=== PATIENT | male | born 1965 | race African-American/Black ===

== ENCOUNTER 2018-01-09 16:55 | Inpatient (IN) ==
--- NOTE | 2018-01-09 17:31 | ED ---
HPI General Chief complaint: Respiratory Symptoms Stated complaint: FLU LIKE SYMPTOMS Source: patient Mode of arrival: ambulatory Limitations: no limitations History of Present Illness HPI narrative: 52-year-old male patient with history of hypertension presents to the ER today with 2 days history of malaise, cough, flulike symptoms, shortness of breath, and body aches. He does not know of any sick contacts. He denies any chest pains, vomiting, abdominal pains, or other symptoms. Related Data Home Medications Medication Instructions Recorded Confirmed No Known Home Medications 01/09/18 01/09/18 Allergies Allergy/AdvReac Type Severity Reaction Status Date / Time No Known Allergies Allergy Unknown none Uncoded 01/09/18 17:04 Review of Systems ROS: all other systems reviewed are negative [facility] Social History Social History Substance History: Past History Second Hand Smoke Exposure: No Smoking Status: Former smoker Tobacco Type: Cigarettes How Often Do You Have a Drink Containing Alcohol: Monthly or less Recent Travel in [facility] within the Last 8 Weeks: No Recent Out of Country Travel within the Last 8 Weeks: No Exam Narrative Exam Narrative: GENERAL: Well-developed middle-age male patient currently and moderate distress. Awake and oriented 3. SKIN: Focused skin assessment warm/dry. HEAD: Atraumatic. Normocephalic. EYES: Pupils equal and round. No scleral icterus. No injection or drainage. ENT: No nasal bleeding or discharge. Mucous membranes pink and moist. NECK: Trachea midline. No JVD. CARDIOVASCULAR: Regular rate and rhythm. No murmur appreciated. RESPIRATORY: No accessory muscle use. Coarse breath sounds bilaterally. Breath sounds equal bilaterally. GASTROINTESTINAL: Abdomen soft, non-tender, nondistended. Hepatic and splenic margins not palpable. MUSCULOSKELETAL: No obvious deformities. No clubbing. No cyanosis. No edema. NEUROLOGICAL: Awake and alert. No obvious cranial nerve deficits. Motor grossly within normal limits. Normal speech. PSYCHIATRIC: Appropriate mood and affect; insight and judgment normal. Course Initial Documented Vital Signs Temperature 98.9 F 01/09/18 16:56 Pulse Rate 95 H 01/09/18 16:56 Respiratory Rate 24 01/09/18 16:56 Blood Pressure 111/63 01/09/18 16:56 Pulse Oximetry 93 L 01/09/18 16:56 Last Documented Vital Signs Temperature 98.9 F 01/09/18 16:56 Pulse Rate 92 H 01/09/18 18:18 Respiratory Rate 22 01/09/18 18:18 Blood Pressure 99/56 L 01/09/18 18:18 Pulse Oximetry 94 L 01/09/18 18:18 Medical Decision Making MDM Narrative Medical decision making narrative: Chest x-ray shows a right upper lobe pneumonia. IV fluids were given and antibiotics were given after cultures have been drawn. His lactate is fairly elevated as well. At this point, my plan would be to admit him for further treatment of his pneumonia. Case is discussed with hospitalist Dr. Juarez is for admission. Medical Screen Exam Complete: Yes Emergency Medical Condition: Yes Differential Diagnosis Differential Diagnosis: Sepsis versus pneumonia versus bronchitis versus influenza Lab Data Lab results reviewed: Yes I reviewed the patient's lab results. Result diagrams: 01/09/18 17:20 01/09/18 17:20 Lab Results 01/09/18 01/09/18 01/09/18 Range/Units 17:20 17:20 17:20 CBC w Diff Slide review pending WBC 3.1 L (4.0-11.0) th/mm3 RBC 5.04 (4.50-5.90) mil/mm3 Hgb 15.7 (13.0-17.0) gm/dL Hct 45.4 (39.0-51.0) % MCV 90.2 (80.0-100.0) fL MCH 31.1 (27.0-34.0) pg MCHC 34.5 (32.0-36.0) % RDW 13.5 (11.6-17.2) % Plt Count 183 (150-450) th/mm3 MPV 9.0 (7.0-11.0) fL Neut % (Auto) 76.8 H (16.0-70.0) % Lymph % (Auto) 15.6 (9.0-44.0) % [place] % (Auto) 7.1 (0.0-8.0) % Eos % (Auto) 0.3 (0.0-4.0) % Baso % (Auto) 0.2 (0.0-2.0) % Neut # (Auto) 2.4 (1.8-7.7) th/mm3 Lymph # (Auto) 0.5 L (1.0-4.8) th/mm3 [place] # (Auto) 0.2 (0.0-0.9) th/mm3 Eos # (Auto) 0.0 (0.0-0.4) th/mm3 Baso # (Auto) 0.0 (0.0-0.2) th/mm3 WBC Differential . Diff Scan Auto diff confirmed Differential Comment . Sodium 138 (136-145) meq/L Potassium 4.5 (3.5-5.1) meq/L Chloride 103 (98-107) meq/L Carbon Dioxide 25.1 (21.0-32.0) meq/L Anion Gap 10 (5-15) meq/L BUN 21 H (7-18) mg/dL Creatinine 1.80 H (0.60-1.30) mg/dL Estimated GFR 48 L (>89) mL/min Random Glucose 119 H (74-106) mg/dL Lactic Acid 3.2 H (0.4-2.0) mmol/L Calcium 8.5 (8.5-10.1) mg/dL Total Bilirubin 1.1 H (0.2-1.0) mg/dL AST 40 H (15-37) U/L ALT 41 (12-78) U/L Alkaline Phosphatase 35 L (45-117) U/L Total Protein 7.2 (6.4-8.2) g/dL Albumin 3.1 L (3.4-5.0) g/dL Imaging Data Attestation: I personally reviewed and interpreted this imaging study as follows : Radiologist's impression: Chest X-Ray 01/09/18 17:24 CONCLUSION: Right upper lobe pneumonia. Discharge Plan Discharge Disposition Patient Disposition: 30 Still Patient Discharge Condition Condition: Stable Discharge Details Anticipated Discharge Date: 01/09/18 Diagnosis: Pneumonia, Sepsis Physicians Team ED Provider: Diana Madrigal Primary Care Provider: Primary Care Flores Gross Rxs /Orders / Referrals /Forms Prescriptions: No Action No Known Home Medications RF: 0 Status ED Status: In Room
[2018-01-09 17:44] LABS: Baso % (Auto) 0.2 % (0.0-2.0); Eos % (Auto) 0.3 % (0.0-4.0); Hematocrit 45.4 % (39.0-51.0); Hemoglobin 15.7 gm/dL (13.0-17.0); Lymph # (Auto) 0.5 th/mm3 (1.0-4.8); Lymph % (Auto) 15.6 % (9.0-44.0); Mean Corpuscular HGB Conc 34.5 % (32.0-36.0); Mean Corpuscular Hemoglobin 31.1 pg (27.0-34.0); Mean Corpuscular Volume 90.2 fL (80.0-100.0); Mono # (Auto) 0.2 th/mm3 (0.0-0.9); Mono % (Auto) 7.1 % (0.0-8.0); Neut # (Auto) 2.4 th/mm3 (1.8-7.7); Neut % (Auto) 76.8 % (16.0-70.0); Platelet Count 183 th/mm3 (150-450); Red Blood Count 5.04 mil/mm3 (4.50-5.90); Red Cell Distribution Width 13.5 % (11.6-17.2); White Blood Count 3.1 th/mm3 (4.0-11.0)
[2018-01-09 17:46] LABS: Chloride 103 meq/L (98-107); Potassium 4.5 meq/L (3.5-5.1); Sodium 138 meq/L (136-145)
[2018-01-09 17:49] LABS: Albumin 3.1 g/dL (3.4-5.0); Anion Gap 10 meq/L (5-15); Calcium 8.5 mg/dL (8.5-10.1); Carbon Dioxide 25.1 meq/L (21.0-32.0); Glucose,Random 119 mg/dL (74-106)
--- NOTE | 2018-01-09 17:49 | XR ---
EXAM DATE: 01/09/2018 5:44 PM EDT AGE/SEX: 52 years / Male INDICATIONS: Short of breath, right side chest pain, cough, fever CLINICAL DATA: This is the patient's initial encounter. Patient reports that signs and symptoms have been present for 2 days and indicates a pain score of 6/10. MEDICAL/SURGICAL HISTORY: None. None. COMPARISON: No prior exams available for comparison. FINDINGS: There is dense airspace consolidation right upper lobe consistent with pneumonia. Heart and mediastinum are unremarkable for technique. CONCLUSION: Right upper lobe pneumonia. Electronically signed by: Kady Ryan MD 01/09/2018 5:48 PM EDT
[2018-01-09 17:50] LABS: Blood Urea Nitrogen 21 mg/dL (7-18)
[2018-01-09 17:52] LABS: Alanine Aminotransferase 41 U/L (12-78)
[2018-01-09 17:53] LABS: Aspartate Aminotransferase 40 U/L (15-37); Glomerular Filtration Rate 48 mL/min (>89)
[2018-01-09 17:54] LABS: Total Protein 7.2 g/dL (6.4-8.2)
[2018-01-09 17:55] LABS: Alkaline Phosphatase 35 U/L (45-117)
[2018-01-09] MEDS ORDERED: Sodium Chlor 0.9% Inj 500 ML IV.SIG SCH (18:00)
[2018-01-09] MEDS ORDERED: Azithromycin Inj 500 MG in Sodium Chlor 0.9% Inj 250 ML IV.SIG ONE (18:03)
[2018-01-09 21:48] LABS: Bilirubin,Urine Negative (Negative); Clarity,Urine Clear (Clear); Glucose,Urine (UA) Negative (Negative); Leukocyte Esterase,Urine Negative (Negative); Nitrite,Urine Negative (Negative); Specific Gravity,Urine 1.025 (1.002-1.035)
[2018-01-09 22:16] LABS: Color,Urine Orange (Yellw/Straw)
[2018-01-09 22:17] LABS: RBC,Urine 0-3 /hpf (0-3)
--- NOTE | 2018-01-09 23:46 | P.HPCC ---
History of Present Illness Primary Care Physician: No Primary Care Physician History of Present Illness: 52-year-old male patient with history of hypertension presents with 2 days history of malaise, cough, flulike symptoms, shortness of breath, and body aches. He does not know of any sick contacts. He denies any chest pains, vomiting, abdominal pains, or other symptoms. After patient was admitted to hospitalist services, however his blood pressures dropped to 70/50, and there was a concern that he may be septic. Also the lactate was 3. The hospitalists then requested to admit the patient to ironmolder service. Inpatient Certification: I certify that the inpatient services were ordered in accordance with Medicare regulations governing the order. This includes certification that hospital inpatient services are reasonable and necessary and in the case of services not specified as inpatient-only under 42 CFR 419.22(n), that they are appropriately provided as inpatient services in accordance to with the 2-midnight benchmark under 43 CFR 412.3(e) Estimated Total Length of Stay (Days): 2 Plans for Post Hospital Care: Home Review of Systems All other systems reviewed negative except as stated in HPI PMFSH - History History Provided By: Patient - Tobacco History Second Hand Smoke Exposure: No Tobacco Use In Past 30 Days: No Smoking Status: Former smoker Tobacco Type: Cigarettes - Alcohol History How Often Do You Have a Drink Containing Alcohol: Monthly or less - Substance Use History Substance History: Past History - Substance Use Type Crack/Cocaine Status: Sustained Remission Route Used: Inhalation - Travel History Recent Travel in the [place] Within the Last 8 Weeks: No Recent Travel Out of the Country Within the Last 8 Weeks: No - Immunization History Tetanus Immunization: >5 Years Hx Influenza Vaccine This Season: No Medications and Allergies Active Medications: Active Medications Sodium Chloride (Ns Inj) 500 mls @ 0 mls/hr IV.SIG BOLUS RAVI Last Infusion: 01/09/18 19:29 Dose: Infused Sodium Chloride (Ns Flush) 2 ml IV.FLUSH PRN PRN PRN Reason: FLUSH AFTER USING IV ACCESS Last Admin: 01/09/18 20:00 Dose: 2 ml Current Medications Acetaminophen (Tylenol) 650 mg PO Q6H PRN PRN Reason: PAIN 1-10 AND/OR FEVER >101F Last Admin: 01/10/18 03:19 Dose: 650 mg Al Hydroxide/Mg Hydroxide (Milk Of Magnesia Liq) 30 ml PO Q12H PRN PRN Reason: Mild Constipation Albuterol (Duoneb Neb (Prn)) 1 ampul NEB Q2HR NEB PRN PRN Reason: WHEEZING Bisacodyl (Dulcolax Supp) 10 mg RECTAL DAILY PRN PRN Reason: SEVERE CONSITIPATION Chlorhexidine Gluconate (Chlorhexidine 2% Cloth) 3 pack TOPICAL DAILY@0400 RAVI Stop: 01/15/18 03:59 Last Admin: 01/10/18 03:05 Dose: 3 pack Chlorhexidine Gluconate (Chlorhexidine 2% Cloth) 3 pack TOPICAL DAILY@0400 PRN PRN Reason: Extra cloth needed Stop: 01/15/18 03:59 Enoxaparin Sodium (Lovenox Inj) 40 mg SQ Q24H [facility] Last Admin: 01/10/18 03:05 Dose: 40 mg Famotidine (Pepcid Pf Inj) 20 mg IV.PUSH Q12HR RAVI Sodium Chloride (Ns Inj) 500 mls @ 0 mls/hr IV.SIG BOLUS [facility] Last Infusion: 01/09/18 19:29 Dose: Infused Azithromycin 500 mg/ Sodium (Chloride) 250 mls @ 250 mls/hr IV.SIG Q24H [facility] Last Admin: 01/10/18 03:04 Dose: 250 mls/hr Sodium Chloride (Ns Inj) 1,000 mls @ 184 mls/hr IV.CONT .Q5H27M [facility] Last Admin: 01/10/18 03:05 Dose: 184 mls/hr Piperacillin/Tazobactam/Dextrose (Zosyn 4.5 Gm Premix) 4.5 gm in 100 mls @ 200 mls/hr IV.SIG Q6H [facility] Last Admin: 01/10/18 03:04 Dose: 200 mls/hr Lactulose (Lactulose Liq) 30 ml PO DAILY PRN PRN Reason: SEVERE CONSITIPATION Metoclopramide HCl (Reglan Inj) 5 mg IV.PUSH Q6HR RAVI; Protocol Ondansetron HCl (Zofran Inj) 4 mg IV.PUSH Q6H PRN PRN Reason: NAUSEA OR VOMITING Senna/Docusate Sodium (Winsome-Colace) 1 tab PO BID RAVI Sennosides (Senokot) 17.2 mg PO Q12H PRN PRN Reason: Moderate Constipation Sodium Chloride (Ns Flush) 2 ml IV.FLUSH PRN PRN PRN Reason: FLUSH AFTER USING IV ACCESS Last Admin: 01/09/18 20:00 Dose: 2 ml Sodium Chloride (Ns Flush) 2 ml IV.FLUSH PRN PRN PRN Reason: FLUSH AFTER USING IV ACCESS Sodium Chloride (Ns Flush) 2 ml IV.FLUSH BID RAVI Temazepam (Restoril) 15 mg PO HS PRN PRN Reason: INSOMNIA Allergies Allergy/AdvReac Type Severity Reaction Status Date / Time No Known Allergies Allergy Unknown none Uncoded 01/09/18 17:04 Home Medications Medication Instructions Recorded Confirmed Type No Known Home Medications 01/09/18 01/09/18 History Results - Labs CBC & Chem 7: 01/10/18 03:16 01/09/18 17:20 Labs: Short CBC 01/09/18 Range/Units 17:20 WBC 3.1 L (4.0-11.0) th/mm3 Hgb 15.7 (13.0-17.0) gm/dL Hct 45.4 (39.0-51.0) % Plt Count 183 (150-450) th/mm3 BMP 01/09/18 17:20 Sodium 138 Potassium 4.5 Chloride 103 Carbon Dioxide 25.1 BUN 21 H Creatinine 1.80 H Calcium 8.5 Liver Function 01/09/18 Range/Units 17:20 Total Bilirubin 1.1 H (0.2-1.0) mg/dL AST 40 H (15-37) U/L ALT 41 (12-78) U/L Alkaline Phosphatase 35 L (45-117) U/L Albumin 3.1 L (3.4-5.0) g/dL Urine 01/09/18 Range/Units 21:40 Urine Color [place]zel H (Yellw/Straw) Urine Clarity Clear (Clear) Urine pH 6.0 (5.0-8.5) Ur Specific [place] 1.025 (1.002-1.035) Urine Protein 30 H (Neg-Trace) mg/dL Urine Glucose (UA) Negative (Negative) mg/dL - Imaging Impressions Chest X-Ray 01/09/18 17:24 CONCLUSION: Right upper lobe pneumonia. Exam Vital signs: Vital Signs 01/09/18 16:56 01/09/18 17:20 01/09/18 18:18 Temperature 98.9 F Pulse Rate 95 H 92 H Respiratory Rate 24 22 Blood Pressure 111/63 99/56 L Pulse Oximetry 93 L 90 L 94 L 01/09/18 18:40 01/09/18 18:46 01/09/18 19:00 Temperature Pulse Rate 91 H 91 H 91 H Respiratory Rate 22 22 23 Blood Pressure 74/56 L 93/55 L 90/58 L Pulse Oximetry 98 98 01/09/18 19:30 01/09/18 19:55 01/09/18 21:22 Temperature Pulse Rate 98 H 96 H 90 Respiratory Rate 23 26 H 26 H Blood Pressure 98/68 L 102/58 L 107/44 L Pulse Oximetry 98 93 L 95 Intake & Output 01/09/18 01/09/18 01/10/18 06:59 18:59 06:59 Intake Total 1850 / 1850 Output Total 200 / 200 Balance 1650 / 1650 Weight 123 kg Intake: IV 850 / 850 Azithromycin Inj 500 MG In NS 250 / 250 Inj 250 ML @ 250 mls/hr IV.SIG ONCE ONE Rx#:[id number] NS Inj 500 ML @ Wide Open IV. 500 / 500 SIG BOLUS RAVI Rx#:[id number] Rocephin Inj 2,000 MG In NS Inj 100 / 100 100 ML @ 200 mls/hr IV.SIG ONCE ONE Rx#:[id number] Other 1000 / 1000 Output: Urine 200 / 200 Other: Other Intake Source Saline Solution - Constitutional mild distress - Routine HEENT Exam Head: Present: normocephalic, atraumatic Eye: Present: EOMI, PERRL, normal accommodation. Absent: conjunctival icterus ENT: Present: mucous membranes moist - Routine Neck Exam Present: supple, full ROM. Absent: JVD, carotid bruit - Routine Respiratory Exam Present: rhonchi, crackles. Absent: accessory muscle use, stridor, wheezes - Routine Cardiovascular Exam Present: RRR, S1, S2. Absent: murmur, gallop - Routine Abdominal Exam Present: soft, normoactive bowel sounds. Absent: tenderness, distended, rebound - Routine Extremities Exam Absent: cyanosis, clubbing, edema - Routine Skin Exam Present: intact. Absent: cyanosis, erythema - Routine Neurological Exam Present: alert, oriented X3, moving all extremities Septic Shock Reassessment Septic shock perfusion: reassessment completed Caprini VTE Risk Assessment Caprini VTE Risk Assessment: Moderate/High Risk (score >= 2) Caprini Risk Assessment Model: Point Value = 1 Point Value = 2 Point Value = 3 Point Value = 5 Age 41-60 Minor surgery BMI > 25 kg/m2 Swollen legs Varicose veins or History of unexplained or recurrent spontaneous Oral contraceptives or hormone replacement Sepsis (< 1 month) Serious lung disease, including pneumonia (< 1 month) Abnormal pulmonary function Acute myocardial infarction Congestive heart failure (< 1 month) History of inflammatory bowel disease Medical patient at bed rest Age 61-74 Arthroscopic surgery Major open surgery (> 45 min) Laparoscopic surgery (> 45 min) Malignancy Confined to bed (> 72 hours) Immobilizing plaster cast Central venous access Age >= 75 History of VTE Family history of VTE Factor V Leiden Prothrombin [id number] Lupus anticoagulant Anticardiolipin antibodies Elevated serum homocysteine Heparin-induced thrombocytopenia Other congenital or acquired thrombophilia Stroke (< 1 month) Elective arthroplasty Hip, pelvis, or leg fracture Acute spinal cord injury (< 1 month) Prophylaxis Regimen: Total Risk Factor Score Risk Level Prophylaxis Regimen 0-1 Low Early ambulation 2 Moderate Order ONE of the following: *Sequential Compression Device (SCD) *Heparin 5000 units SQ BID 3-4 Higher Order ONE of the following medications: *Heparin 5000 units SQ TID *Enoxaparin/Lovenox 40 mg SQ daily (WT < 150 kg, CrCl > 30 mL/min) *Enoxaparin/Lovenox 30 mg SQ daily (WT < 150 kg, CrCl > 10-29 mL/min) *Enoxaparin/Lovenox 30 mg SQ BID (WT < 150 kg, CrCl > 30 mL/min) AND/OR *Sequential Compression Device (SCD) 5 or more Highest Order ONE of the following medications: *Heparin 5000 units SQ TID (Preferred with Epidurals) *Enoxaparin/Lovenox 40 mg SQ daily (WT < 150 kg, CrCl > 30 mL/min) *Enoxaparin/Lovenox 30 mg SQ daily (WT < 150 kg, CrCl > 10-29 mL/min) *Enoxaparin/Lovenox 30 mg SQ BID (WT < 150 kg, CrCl > 30 mL/min) AND *Sequential Compression Device (SCD) Assessment and Plan - Assessment and Plan Plan: Pneumonia -Community-acquired -Broad-spectrum antibiotic -Influenza antigen negative -Follow-up cultures and de-escalate -As needed Hypotension -SIRS with lactic acidosis -Aggressive IV fluid hydration -Telemetry -Monitor trend of lactic acid Acute kidney injury -Dehydration -Aggressive IV fluid resuscitation -Strict I's and O -Monitor creatinine and electrolyte levels DVT GI prophylaxis -Teds SCDs -Lovenox -No GI prophylaxis indicated 35 minutes of critical care
[2018-01-10] MEDS ORDERED: Bisacodyl 10 MG Supp RECTAL PRN (02:40)
[2018-01-10] MEDS ORDERED: Temazepam 15 MG Capsule PO PRN (02:40)
[2018-01-10] MEDS: Azithromycin Inj 500 MG in Sodium Chlor 0.9% Inj 250 ML IV.SIG SCH (03:04)
[2018-01-10] MEDS: Piperacil/Tazo 4.5 GM Premix 4.5 GM/100 ML BAG IV.SIG SCH ×4 (03:04→20:54)
[2018-01-10] MEDS: Sod Chloride 0.9% Inj 1,000 ML IV.CONT SCH ×3 (03:05→17:00)
[2018-01-10] MEDS: Chlorhexidine Gluconate 2% 1 Pack (2 Cloths) TOPICAL SCH (03:05)
[2018-01-10] MEDS: Enoxaparin Inj 40 MG/0.4 ML Syringe SQ SCH (03:05)
[2018-01-10] MEDS: Acetaminophen 325 MG Tablet PO PRN ×3 (03:19→21:04)
[2018-01-10 03:34] LABS: Baso % (Auto) 0.3 % (0.0-2.0); Eos % (Auto) 0.2 % (0.0-4.0); Hemoglobin 14.1 gm/dL (13.0-17.0); Lymph # (Auto) 0.9 th/mm3 (1.0-4.8); Lymph % (Auto) 9.6 % (9.0-44.0); Mean Corpuscular HGB Conc 34.4 % (32.0-36.0); Mean Corpuscular Hemoglobin 31.2 pg (27.0-34.0); Mean Corpuscular Volume 90.8 fL (80.0-100.0); Mean Platelet Volume 8.7 fL (7.0-11.0); Mono # (Auto) 0.7 th/mm3 (0.0-0.9); Mono % (Auto) 7.3 % (0.0-8.0); Neut # (Auto) 8.1 th/mm3 (1.8-7.7); Neut % (Auto) 82.6 % (16.0-70.0); Platelet Count 183 th/mm3 (150-450); Red Blood Count 4.52 mil/mm3 (4.50-5.90); Red Cell Distribution Width 13.9 % (11.6-17.2); White Blood Count 9.8 th/mm3 (4.0-11.0)
[2018-01-10 03:51] LABS: Activated Partial Thrombo Time 30.8 sec (24.3-30.1); INR 1.4 Ratio; Prothrombin Time 14.1 sec (9.8-11.6)
[2018-01-10 03:54] LABS: Alkaline Phosphatase 28 U/L (45-117); Total Protein 7.1 g/dL (6.4-8.2)
[2018-01-10] MEDS ORDERED: Chlorhexidine Gluconate 2% 1 Pack (2 Cloths) TOPICAL PRN (04:00)
[2018-01-10 04:12] LABS: Alanine Aminotransferase 35 U/L (12-78); Albumin 2.8 g/dL (3.4-5.0); Anion Gap 10 meq/L (5-15); Aspartate Aminotransferase 23 U/L (15-37); Blood Urea Nitrogen 23 mg/dL (7-18); Calcium 8.1 mg/dL (8.5-10.1); Chloride 105 meq/L (98-107); Glomerular Filtration Rate 63 mL/min (>89); Glucose,Random 116 mg/dL (74-106); Magnesium 1.7 mg/dL (1.5-2.5); Phosphorus 3.2 mg/dL (2.5-4.9); Potassium 4.3 meq/L (3.5-5.1); Sodium 141 meq/L (136-145)
[2018-01-10 04:26] LABS: Lymphocytes 13 % (9-44); Monocytes 8 % (0-8)
[2018-01-10 04:28] LABS: RBC Morphology Normal (Normal)
[2018-01-10 04:29] LABS: Platelet Estimate Normal (Normal); Platelet Morphology Normal (Normal)
[2018-01-10] MEDS: Senna/Docusate Sodium 8.6/50 MG Tablet PO SCH ×2 (08:36→21:09)
[2018-01-10] MEDS ORDERED: Famotidine PF Inj 20 MG/2 ML Vial IV.PUSH SCH (09:00)
--- NOTE | 2018-01-10 11:07 | P.PNCC ---
Subjective Subjective Remarks/Hospital Course: 52-year-old male patient with history of hypertension presents with 2 days history of malaise, cough, flulike symptoms, shortness of breath, and body aches. He does not know of any sick contacts. He denies any chest pains, vomiting, abdominal pains, or other symptoms. After patient was admitted to hospitalist services, however his blood pressures dropped to 70/50, and there was a concern that he may be septic. Also the lactate was 3. The hospitalists then requested to admit the patient to service delivery management consultant service. 01/10: No issues overnight, patient reports pain while coughing but otherwise offers no complaints. Objective Vital Signs / I&O: Vital Signs 01/09/18 16:56 01/09/18 17:20 01/09/18 18:18 Temperature 98.9 F Pulse Rate 95 H 92 H Respiratory Rate 24 22 Blood Pressure 111/63 99/56 L Pulse Oximetry 93 L 90 L 94 L 01/09/18 18:40 01/09/18 18:46 01/09/18 19:00 Temperature Pulse Rate 91 H 91 H 91 H Respiratory Rate 22 22 23 Blood Pressure 74/56 L 93/55 L 90/58 L Pulse Oximetry 98 98 01/09/18 19:30 01/09/18 19:55 01/09/18 21:22 Temperature Pulse Rate 98 H 96 H 90 Respiratory Rate 23 26 H 26 H Blood Pressure 98/68 L 102/58 L 107/44 L Pulse Oximetry 98 93 L 95 01/10/18 01:21 01/10/18 02:09 01/10/18 04:00 Temperature 98.3 F 98.1 F Pulse Rate 90 88 87 Respiratory Rate 20 28 H 31 H Blood Pressure 105/57 L 132/64 131/59 L Pulse Oximetry 98 95 100 01/10/18 05:22 01/10/18 08:30 Temperature Pulse Rate Respiratory Rate 19 Blood Pressure Pulse Oximetry 100 Intake & Output 01/09/18 01/10/18 01/10/18 18:59 06:59 18:59 Intake Total 2200 / 2200 1000 / 1000 Output Total 200 / 200 Balance 2000 / 1999 1000 / 1000 Weight 123 kg 123.5 kg Intake: IV 1200 / 1200 1000 / 1000 NS Inj 1,000 ML @ 184 mls/hr IV 1000 / 1000 .CONT .Q5H27M RAVI Rx#:[id number] Azithromycin Inj 500 MG In NS 500 / 500 Inj 250 ML @ 250 mls/hr IV.SIG Q24H RAVI Rx#:[id number] Zosyn 4.5 GM Premix 4.5 gm In 100 / 100 100 ml @ 200 mls/hr IV.SIG Q6H RAVI Rx#:[id number] NS Inj 500 ML @ Wide Open IV. 500 / 500 SIG BOLUS RAVI Rx#:[id number] Rocephin Inj 2,000 MG In NS Inj 100 / 100 100 ML @ 200 mls/hr IV.SIG ONCE ONE Rx#:[id number] Other 1000 / 1000 Output: Urine 200 / 200 Other: Other Intake Source Saline Solution Weight On Admission 123.5 kg Result Diagrams: 01/10/18 03:16 01/11/18 04:29 Objective Remarks: GEN: Well-nourished well-developed male, no acute distress HEENT: NCAT, PERRL CARDIO: Regular rate and rhythm PULM: Diminished breath sounds in RUL, otherwise clear, no wheezing, normal work of breathing, no respiratory distress ABD: Soft, non-tender in all quadrants EXT: No lower extremity edema NEURO: A&Ox3, speech clear and fluent, moving all extremities, no focal deficits SKIN: No rashes or lesions Assessment and Plan - Assessment and Plan Plan: Pneumonia -Community-acquired -Broad-spectrum antibiotics (no particular MRSA or pseudomonal risk factors, currently on Zosyn and Azithromycin, antibiotic day #2) -16% bands noted on today's CBC -Influenza antigen negative -Follow-up cultures and de-escalate -PRN nebs, pulm toilet, incentive spirometer Hypotension -SIRS with lactic acidosis, improving (LA now 2.4). Decrease IVF to maintenance. Will repeat lactate at noon; if normalized, will d/c IVF altogether. -Telemetry Acute kidney injury -Dehydration -Given aggressive IV fluid resuscitation overnight, creatinine improved today to 1.4 -Strict I's and O DVT GI prophylaxis -SCDs -Lovenox -No GI prophylaxis indicated Counseling/ Coordination of Care: Total critical care time: 31 minutes. This includes examining the patient, gathering history from someone other than the patient (i.e., chart review), ordering and interpreting radiology studies, ordering and interpreting laboratory studies including trending lactic acid and management of acute kidney injury, management of gram positive bacteremia, re-evaluation at frequent intervals, and documentation. All critical care time is separate and exclusive of procedures, teaching, and patient/ family updates. Patient can be transferred out of [facility] to [facility] surg floor.
[2018-01-11] MEDS: Enoxaparin Inj 40 MG/0.4 ML Syringe SQ SCH (02:54)
[2018-01-11] MEDS: Piperacil/Tazo 4.5 GM Premix 4.5 GM/100 ML BAG IV.SIG SCH ×4 (02:54→21:45)
[2018-01-11] MEDS: Azithromycin Inj 500 MG in Sodium Chlor 0.9% Inj 250 ML IV.SIG SCH (03:43)
[2018-01-11] MEDS: Sod Chloride 0.9% Inj 1,000 ML IV.CONT SCH ×2 (05:54→20:48)
[2018-01-11] MEDS: Chlorhexidine Gluconate 2% 1 Pack (2 Cloths) TOPICAL SCH (05:54)
[2018-01-11 06:06] LABS: Calcium 8.1 mg/dL (8.5-10.1); Carbon Dioxide 23.8 meq/L (21.0-32.0)
--- NOTE | 2018-01-11 09:04 | P.PNIM ---
Subjective Interval history: Follow-up for pneumonia. Patient stated that he feels a lot better. He wants to be transfer out of the ICU. He stated that his breathing has improved drastically. Positive for cough and wheezing. He has no other complaints. Discussed case with patient's nurse. Physical Exam Vital signs: Vital Signs 01/10/18 09:00 01/10/18 10:00 01/10/18 10:39 Temperature Pulse Rate 81 91 H 85 Respiratory Rate 29 H 29 H 29 H Blood Pressure 159/75 H 171/77 H 139/66 Pulse Oximetry 100 94 L 97 01/10/18 11:00 01/10/18 12:00 01/10/18 13:00 Temperature 99.0 F Pulse Rate 85 89 93 H Respiratory Rate 31 H 38 H 33 H Blood Pressure 135/67 133/72 125/72 Pulse Oximetry 99 99 96 01/10/18 14:00 01/10/18 14:28 01/10/18 15:00 Temperature Pulse Rate 91 H 92 H 91 H Respiratory Rate 34 H 35 H 32 H Blood Pressure 147/71 H 150/71 H Pulse Oximetry 98 98 99 01/10/18 16:00 01/10/18 17:00 01/10/18 17:01 Temperature 99.0 F Pulse Rate 83 84 83 Respiratory Rate 25 H 31 H 31 H Blood Pressure 139/64 216/102 H Pulse Oximetry 99 98 99 01/10/18 17:10 01/10/18 17:11 01/10/18 18:00 Temperature Pulse Rate 87 86 87 Respiratory Rate 29 H 33 H 28 H Blood Pressure 149/69 H 149/69 H Pulse Oximetry 98 100 98 01/10/18 18:01 01/10/18 19:00 01/10/18 20:00 Temperature 99.7 F H Pulse Rate 90 86 83 Respiratory Rate 26 H 31 H 28 H Blood Pressure 135/74 142/72 H 171/76 H Pulse Oximetry 98 97 98 01/11/18 00:00 01/11/18 04:00 01/11/18 08:25 Temperature 100.1 F H 98.9 F Pulse Rate 82 80 Respiratory Rate 23 28 H Blood Pressure 130/66 164/79 H Pulse Oximetry 99 100 99 Intake & Output 01/10/18 01/11/18 01/11/18 18:59 06:59 18:59 Intake Total 2250 / 2250 2170 / 2170 Output Total 1300 / 1300 600 / 600 Balance 950 / 950 1570 / 1570 Weight 126 kg Intake: IV 1300 / 1300 1450 / 1450 NS Inj 1,000 ML @ 83 mls/hr IV. 1100 / 1100 1000 / 1000 CONT .Q12H3M RAVI Rx#:[id number] Azithromycin Inj 500 MG In NS 250 / 250 Inj 250 ML @ 250 mls/hr IV.SIG Q24H RAVI Rx#:[id number] Zosyn 4.5 GM Premix 4.5 gm In 200 / 200 200 / 200 100 ml @ 200 mls/hr IV.SIG Q6H RAVI Rx#:[id number] Oral 950 / 950 720 / 720 Output: Urine 1300 / 1300 600 / 600 Other: # Voids 2 Date of Last Bowel Movement 01/10/18 01/11/18 # Bowel Movements 3 1 - Constitutional no acute distress - Routine HEENT Exam Head: Present: normocephalic, atraumatic - Routine Neck Exam Present: full ROM - Routine Respiratory Exam Comments: Transmitted upper respiratory wheezing. Diffuse bilateral crackles. - Routine Cardiovascular Exam Present: RRR, S1, S2 Comments: No rubs murmurs or gallops. - Routine Abdominal Exam Present: soft, normoactive bowel sounds Results - Labs CBC & Chem 7: 01/10/18 03:16 01/11/18 04:29 Laboratory Results - last 24 hr 01/10/18 01/11/18 16:13 04:29 Sodium 141 Potassium 4.0 Chloride 106 Carbon Dioxide 23.8 Anion Gap 11 BUN 21 H Creatinine 1.36 H Estimated GFR 66 L Random Glucose 119 H Lactic Acid 2.2 H Calcium 8.1 L Microbiology 01/09/18 17:22 Blood - Peripheral Aerobic Blood Culture - Preliminary gram positive cocci 01/09/18 17:22 Blood - Peripheral Anaerobic Blood Culture - Preliminary gram positive cocci 01/09/18 17:15 Blood - Peripheral Aerobic Blood Culture - Preliminary gram positive cocci 01/09/18 17:15 Blood - Peripheral Anaerobic Blood Culture - Preliminary gram positive cocci 01/10/18 02:45 Urine - Clean Catch Urine Legionella Antigen - Final Presumptive negative for Legionella pneumophila serogroup 1 antigen in urine, suggesting no recent or recurrent infection. Infection due to Legionella cannot be ruled out since other serogroups and species may cause disease, antigen may not be present in urine in early infection, and the level of antigen present in the urine may be below the detection limit of the test. Assessment and Plan - Plan Pneumonia -Community-acquired -Broad-spectrum antibiotics (no particular MRSA or pseudomonal risk factors, currently on Zosyn and Azithromycin, antibiotic day #3) -Clinically improving. -Influenza antigen negative -Blood cultures positive for gram positive pairs and chains. -PRN nebs, pulm toilet, incentive spirometer Bacteremia gram-positive pairs and chains. -Clinically patient is improving. Continue with current regimen pending cultures. Hypotension -Improved. -Since patient has good oral intake will DC IV fluids. -Telemetry Acute kidney injury -Dehydration -Continue to improve. -Continue to monitor creatinine. Strict ins and out. DVT GI prophylaxis -SCDs -Lovenox -No GI prophylaxis indicated
[2018-01-11] MEDS: Senna/Docusate Sodium 8.6/50 MG Tablet PO SCH ×2 (09:42→21:45)
[2018-01-11 10:13] LABS: Baso % (Auto) 0.2 % (0.0-2.0); Eos # (Auto) 0.3 th/mm3 (0.0-0.4); Eos % (Auto) 1.4 % (0.0-4.0); Hemoglobin 12.8 gm/dL (13.0-17.0); Lymph # (Auto) 1.7 th/mm3 (1.0-4.8); Lymph % (Auto) 8.2 % (9.0-44.0); Mean Corpuscular HGB Conc 33.8 % (32.0-36.0); Mean Corpuscular Volume 91.7 fL (80.0-100.0); Mono # (Auto) 1.1 th/mm3 (0.0-0.9); Mono % (Auto) 5.2 % (0.0-8.0); Neut # (Auto) 17.8 th/mm3 (1.8-7.7); Platelet Count 180 th/mm3 (150-450); Red Blood Count 4.14 mil/mm3 (4.50-5.90); Red Cell Distribution Width 14.2 % (11.6-17.2); White Blood Count 20.9 th/mm3 (4.0-11.0)
[2018-01-11 10:56] LABS: Eosinophils 1 % (0-4); Lymphocytes 6 % (9-44); Metamyelocytes 1 % (0-1); Monocytes 7 % (0-8)
[2018-01-11 10:57] LABS: Dohle Bodies Present; Platelet Estimate Normal (Normal); Platelet Morphology Normal (Normal); Toxic Granulation 1+
[2018-01-11] MEDS: Acetaminophen 325 MG Tablet PO PRN ×2 (11:09→19:10)
[2018-01-12] MEDS: Sod Chloride 0.9% Inj 1,000 ML IV.CONT SCH ×2 (01:05→16:41)
[2018-01-12] MEDS: Enoxaparin Inj 40 MG/0.4 ML Syringe SQ SCH (01:53)
[2018-01-12] MEDS: Piperacil/Tazo 4.5 GM Premix 4.5 GM/100 ML BAG IV.SIG SCH ×2 (01:53→08:18)
[2018-01-12] MEDS: Azithromycin Inj 500 MG in Sodium Chlor 0.9% Inj 250 ML IV.SIG SCH (02:46)
[2018-01-12] MEDS: Chlorhexidine Gluconate 2% 1 Pack (2 Cloths) TOPICAL SCH (03:54)
[2018-01-12 04:25] LABS: Baso # (Auto) 0.1 th/mm3 (0.0-0.2); Baso % (Auto) 0.3 % (0.0-2.0); Eos # (Auto) 0.3 th/mm3 (0.0-0.4); Eos % (Auto) 1.3 % (0.0-4.0); Hematocrit 39.6 % (39.0-51.0); Hemoglobin 13.2 gm/dL (13.0-17.0); Lymph # (Auto) 1.7 th/mm3 (1.0-4.8); Lymph % (Auto) 7.1 % (9.0-44.0); Mean Corpuscular HGB Conc 33.5 % (32.0-36.0); Mean Corpuscular Hemoglobin 30.7 pg (27.0-34.0); Mean Corpuscular Volume 91.5 fL (80.0-100.0); Mean Platelet Volume 9.2 fL (7.0-11.0); Mono # (Auto) 1.4 th/mm3 (0.0-0.9); Mono % (Auto) 5.6 % (0.0-8.0); Neut # (Auto) 21.1 th/mm3 (1.8-7.7); Neut % (Auto) 85.7 % (16.0-70.0); Platelet Count 189 th/mm3 (150-450); Red Blood Count 4.32 mil/mm3 (4.50-5.90); Red Cell Distribution Width 14.4 % (11.6-17.2); White Blood Count 24.7 th/mm3 (4.0-11.0)
[2018-01-12 04:41] LABS: Calcium 8.4 mg/dL (8.5-10.1); Carbon Dioxide 25.8 meq/L (21.0-32.0); Potassium 3.9 meq/L (3.5-5.1)
[2018-01-12] MEDS: Senna/Docusate Sodium 8.6/50 MG Tablet PO SCH ×2 (08:19→20:56)
[2018-01-12] MEDS: Acetaminophen 325 MG Tablet PO PRN (08:20)
--- NOTE | 2018-01-12 09:54 | P.PNIM ---
Subjective Interval history: Follow-up for pneumonia bacteremia Patient stated that he continues to better. Continues to have a cough but that has improved. Patient is asking to be transferred out of the ICU otherwise he has no other complaints. Physical Exam Vital signs: Vital Signs 01/11/18 12:00 01/11/18 16:00 01/11/18 20:00 Temperature 98.2 F 98.0 F 99.0 F Pulse Rate 77 75 74 Respiratory Rate 30 H 25 H 20 Blood Pressure 157/88 H 173/86 H 176/85 H Pulse Oximetry 100 99 100 01/11/18 21:07 01/11/18 23:38 01/12/18 00:00 Temperature 98.9 F Pulse Rate 74 Respiratory Rate 30 H Blood Pressure 173/93 H Pulse Oximetry 98 96 96 01/12/18 03:36 01/12/18 04:00 Temperature 98.7 F Pulse Rate 75 Respiratory Rate 30 H Blood Pressure 171/83 H Pulse Oximetry 97 99 Intake & Output 01/11/18 01/12/18 01/12/18 18:59 06:59 18:59 Intake Total 900 / 900 1790 / 1790 Output Total 1000 / 1000 1000 / 1000 Balance -100 / -100 790 / 790 Weight 126.5 kg Intake: IV 100 / 100 1550 / 1550 NS Inj 1,000 ML @ 83 mls/hr IV. 1000 / 1000 CONT .Q12H3M RAVI Rx#:[id number] Azithromycin Inj 500 MG In NS 250 / 250 Inj 250 ML @ 250 mls/hr IV.SIG Q24H RAVI Rx#:[id number] Zosyn 4.5 GM Premix 4.5 gm In 100 / 100 300 / 300 100 ml @ 200 mls/hr IV.SIG Q6H RAVI Rx#:[id number] Oral 800 / 800 240 / 240 Output: Urine 1000 / 1000 1000 / 1000 Other: Date of Last Bowel Movement 01/11/18 01/12/18 01/11/18 # Bowel Movements 1 - Constitutional no acute distress - Routine HEENT Exam ENT: Present: mucous membranes moist - Routine Respiratory Exam Present: CTA bilaterally - Routine Cardiovascular Exam Present: RRR, S1, S2 Comments: No rubs murmurs or gallops. - Routine Abdominal Exam Present: soft, normoactive bowel sounds Comments: Negative for any tenderness palpation. Negative for any peritoneal signs. - Routine Neurological Exam Present: alert, oriented X3 Results - Labs CBC & Chem 7: 01/12/18 03:16 01/12/18 03:16 Laboratory Results - last 24 hr 01/11/18 01/12/18 01/12/18 09:43 03:16 03:16 WBC 20.9 H 24.7 H RBC 4.14 L 4.32 L Hgb 12.8 L 13.2 Hct 38.0 L 39.6 MCV 91.7 91.5 MCH 31.0 30.7 MCHC 33.8 33.5 RDW 14.2 14.4 Plt Count 180 189 MPV 9.0 9.2 Prelim Diff (Auto) Slide review pending Slide review pending Neut % (Auto) 85.0 H 85.7 H Lymph % (Auto) 8.2 L 7.1 L [facility] % (Auto) 5.2 5.6 Eos % (Auto) 1.4 1.3 Baso % (Auto) 0.2 0.3 Neut # (Auto) 17.8 H 21.1 H Lymph # (Auto) 1.7 1.7 [facility] # (Auto) 1.1 H 1.4 H Eos # (Auto) 0.3 0.3 Baso # (Auto) 0.0 0.1 WBC Differential Manual diff final Seg Neuts % (Manual) 72 H Band Neuts % (Manual) 13 H Lymphocytes % (Manual) 6 L Monocytes % (Manual) 7 Eosinophils % (Manual) 1 Metamyelocytes % (Man) 1 Abs Neuts (Manual) 18.0 H Differential Comment . . Toxic Granulation 1+ H Dohle Bodies Present H Platelet Estimate Normal Platelet Morphology Normal Sodium 141 Potassium 3.9 Chloride 106 Carbon Dioxide 25.8 Anion Gap 9 BUN 16 Creatinine 1.07 Estimated GFR 87 L Random Glucose 78 Calcium 8.4 L Microbiology 01/09/18 17:22 Blood - Peripheral Aerobic Blood Culture - Preliminary Streptococcus pneumoniae 01/09/18 17:22 Blood - Peripheral Anaerobic Blood Culture - Preliminary Streptococcus pneumoniae 01/09/18 17:15 Blood - Peripheral Aerobic Blood Culture - Preliminary Streptococcus pneumoniae 01/09/18 17:15 Blood - Peripheral Anaerobic Blood Culture - Preliminary Streptococcus pneumoniae Assessment and Plan - Plan Bacteremia with Streptococcus pneumoniae -4 out of 4 positive. Sensitivities stated that resistant to oxacillin so assume that organism is resistant to penicillin. Will discontinue Zosyn and start Rocephin. Repeat blood cultures. -Leukocytosis did increase but clinically patient is improving. Continue to monitor. Pneumonia -Community-acquired -Influenza antigen negative -Blood cultures positive for gram positive pairs and chains. -PRN nebs, pulm toilet, incentive spirometer -Zosyn will be discontinued based on sensitivity blood cultures. Will start Rocephin. Continues azithromycin. Hypotension -Resolved. Hypertension -Restart home medication. Acute kidney injury -Dehydration -Resolved. -Continue to monitor creatinine. Strict ins and out. DVT GI prophylaxis -SCDs -Lovenox -No GI prophylaxis indicated
[2018-01-12 10:28] LABS: Eosinophils 1 % (0-4); Lymphocytes 9 % (9-44); Monocytes 10 % (0-8); Myelocytes 2 % (0-0); Platelet Estimate Normal (Normal); Platelet Morphology Normal (Normal)
[2018-01-12 10:29] LABS: RBC Morphology Normal (Normal)
[2018-01-12] MEDS: Lisinopril 5 MG Tablet PO SCH (11:20)
[2018-01-12] MEDS ORDERED: Lisinopril 10 MG Tablet PO ONE (16:15)
[2018-01-12] MEDS: hydrALAZINE 25 MG Tablet PO PRN (18:19)
[2018-01-12] MEDS ORDERED: hydrALAZINE 25 MG Tablet PO PRN (18:27)
[2018-01-12] MEDS ORDERED: Labetalol HCl Inj 20 MG/4 ML Vial IV.PUSH PRN (18:57)
[2018-01-12] MEDS: Labetalol HCl Inj 100 MG/20 ML Vial IV.PUSH PRN (20:14)
[2018-01-12] MEDS: amLODIPine 10 MG Tablet PO SCH (20:55)
[2018-01-12] MEDS ORDERED: hydrALAZINE 25 MG Tablet PO ONE (21:47)
[2018-01-13] MEDS: Enoxaparin Inj 40 MG/0.4 ML Syringe SQ SCH (03:04)
[2018-01-13] MEDS: Azithromycin Inj 500 MG in Sodium Chlor 0.9% Inj 250 ML IV.SIG SCH (03:04)
[2018-01-13] MEDS: Labetalol HCl Inj 100 MG/20 ML Vial IV.PUSH PRN ×2 (03:04→07:12)
[2018-01-13] MEDS: Chlorhexidine Gluconate 2% 1 Pack (2 Cloths) TOPICAL SCH (04:00)
[2018-01-13 04:20] LABS: Baso # (Auto) 0.1 th/mm3 (0.0-0.2); Baso % (Auto) 0.5 % (0.0-2.0); Eos # (Auto) 0.4 th/mm3 (0.0-0.4); Eos % (Auto) 2.3 % (0.0-4.0); Hematocrit 40.4 % (39.0-51.0); Hemoglobin 13.4 gm/dL (13.0-17.0); Mean Corpuscular HGB Conc 33.2 % (32.0-36.0); Mean Corpuscular Hemoglobin 30.6 pg (27.0-34.0); Mean Corpuscular Volume 92.2 fL (80.0-100.0); Mean Platelet Volume 8.8 fL (7.0-11.0); Mono # (Auto) 1.7 th/mm3 (0.0-0.9); Mono % (Auto) 9.1 % (0.0-8.0); Neut % (Auto) 77.1 % (16.0-70.0); Platelet Count 194 th/mm3 (150-450); Red Blood Count 4.38 mil/mm3 (4.50-5.90); Red Cell Distribution Width 14.3 % (11.6-17.2); White Blood Count 18.1 th/mm3 (4.0-11.0)
[2018-01-13 04:49] LABS: Anion Gap 8 meq/L (5-15); Blood Urea Nitrogen 14 mg/dL (7-18); Calcium 8.5 mg/dL (8.5-10.1); Carbon Dioxide 29.8 meq/L (21.0-32.0); Chloride 103 meq/L (98-107); Glomerular Filtration Rate Greater Than 89 mL/min (>89); Glucose,Random 87 mg/dL (74-106); Potassium 3.7 meq/L (3.5-5.1); Sodium 141 meq/L (136-145)
[2018-01-13] MEDS: hydrALAZINE 25 MG Tablet PO PRN ×4 (05:45→22:44)
[2018-01-13] MEDS ORDERED: hydrALAZINE 25 MG Tablet PO ONE (06:13)
[2018-01-13 06:29] LABS: Eosinophils 6 % (0-4); Metamyelocytes 11 % (0-1); Monocytes 10 % (0-8); Myelocytes 5 % (0-0)
[2018-01-13 06:30] LABS: Lymphocytes 14 % (9-44)
[2018-01-13 06:31] LABS: RBC Morphology Normal (Normal)
[2018-01-13 06:32] LABS: Platelet Estimate Normal (Normal)
[2018-01-13] MEDS: Lisinopril 5 MG Tablet PO SCH (08:46)
[2018-01-13] MEDS: Senna/Docusate Sodium 8.6/50 MG Tablet PO SCH ×2 (08:47→21:36)
[2018-01-13] MEDS: amLODIPine 10 MG Tablet PO SCH (08:47)
[2018-01-13] MEDS ORDERED: Lisinopril 20 MG Tablet PO SCH (09:00)
--- NOTE | 2018-01-13 09:39 | P.PN ---
Subjective Interval history: Follow-up pneumonia, bacteremia hypertension. States he is doing okay currently on room air. He has been out of bed. According to his BP control has been an issue Physical Exam Vital signs: Vital Signs 01/12/18 12:00 01/12/18 16:00 01/12/18 20:00 Temperature 98.5 F 98.6 F 98.8 F Pulse Rate 66 70 66 Respiratory Rate 19 30 H 35 H Blood Pressure 178/91 H 183/84 H 213/98 H Pulse Oximetry 96 95 98 01/12/18 20:55 01/13/18 00:00 01/13/18 04:00 Temperature 98.4 F 98.4 F Pulse Rate 66 62 Respiratory Rate 27 H 23 Blood Pressure 185/85 H 179/86 H Pulse Oximetry 97 92 L 97 01/13/18 07:35 Temperature Pulse Rate Respiratory Rate Blood Pressure Pulse Oximetry 96 Intake & Output 01/12/18 01/13/18 01/13/18 18:59 06:59 18:59 Intake Total 2500 / 2500 990 / 990 Output Total 1200 / 1200 2600 / 2600 Balance 1300 / 1300 -1610 / -1610 Weight 127.5 kg Intake: IV 1000 / 1000 270 / 270 NS Inj 1,000 ML @ 83 mls/hr IV. 1000 / 1000 170 / 170 CONT .Q12H3M RAVI Rx#:[id number] Rocephin Inj 2,000 MG In NS Inj 100 / 100 100 ML @ 200 mls/hr IV.SIG Q24H RAVI Rx#:[id number] Oral 1500 / 1500 720 / 720 Output: Urine 1200 / 1200 2600 / 2600 Other: Date of Last Bowel Movement 01/12/18 01/13/18 # Bowel Movements 1 Narrative: GENERAL: Well-developed, obese in no distress SKIN: Warm and dry. CARDIOVASCULAR: Regular rate and rhythm. RESPIRATORY: No accessory muscle use. Clear to auscultation. Breath sounds equal bilaterally. GASTROINTESTINAL: Abdomen soft, non-tender, nondistended. MUSCULOSKELETAL: Extremities without clubbing, cyanosis but with trace bilateral leg edema. No obvious deformities. NEUROLOGICAL: Awake and alert. No obvious cranial nerve deficits. Motor grossly within normal limits. Five out of 5 muscle strength in the arms and legs. Normal speech. PSYCHIATRIC: Appropriate mood and affect; insight and judgment normal. Results - Labs CBC & Chem 7: 01/13/18 03:16 01/13/18 03:16 Laboratory Results - last 24 hr 01/12/18 01/13/18 01/13/18 03:16 03:16 03:16 WBC 18.1 H RBC 4.38 L Hgb 13.4 Hct 40.4 MCV 92.2 MCH 30.6 MCHC 33.2 RDW 14.3 Plt Count 194 MPV 8.8 Prelim Diff (Auto) Slide review pending Neut % (Auto) 77.1 H Lymph % (Auto) 11.0 [place] % (Auto) 9.1 H Eos % (Auto) 2.3 Baso % (Auto) 0.5 Neut # (Auto) 14.0 H Lymph # (Auto) 2.0 [place] # (Auto) 1.7 H Eos # (Auto) 0.4 Baso # (Auto) 0.1 WBC Differential Manual diff final Manual diff final Seg Neuts % (Manual) 62 49 Band Neuts % (Manual) 16 H 4 Lymphocytes % (Manual) 9 14 Monocytes % (Manual) 10 H 10 H Eosinophils % (Manual) 1 6 H Basophils % (Manual) 1 Metamyelocytes % (Man) 11 H Myelocytes % (Man) 2 H 5 H Abs Neuts (Manual) 19.8 H 12.5 H Differential Comment . Platelet Estimate Normal Normal Platelet Morphology Normal RBC Morphology Normal Normal Sodium 141 Potassium 3.7 Chloride 103 Carbon Dioxide 29.8 Anion Gap 8 BUN 14 Creatinine 1.01 Estimated GFR Greater than 89 Random Glucose 87 Calcium 8.5 Microbiology 01/09/18 17:15 Blood - Peripheral Aerobic Blood Culture - Preliminary Streptococcus pneumoniae 01/09/18 17:15 Blood - Peripheral Anaerobic Blood Culture - Final Streptococcus pneumoniae 01/09/18 17:22 Blood - Peripheral Aerobic Blood Culture - Final Streptococcus pneumoniae 01/09/18 17:22 Blood - Peripheral Anaerobic Blood Culture - Final Streptococcus pneumoniae - Imaging ITS Impressions Chest X-Ray 01/09/18 17:24 CONCLUSION: Right upper lobe pneumonia. Assessment and Plan - Plan Bacteremia with Streptococcus pneumoniae -4 out of 4 positive. Sensitivities stated that resistant to oxacillin so assume that organism is resistant to penicillin. Discontinued Zosyn and continue Rocephin. Repeat blood cultures negative to date -Leukocytosis improving. Continue to monitor. Pneumonia. As above -Community-acquired -Influenza antigen negative -PRN nebs, pulm toilet, incentive spirometer -Rocephin. Switch to p.o. azithromycin. Hypotension -Resolved. Severe hypertension -Continue lisinopril and Norvasc and add hydrochlorothiazide Acute kidney injury -Dehydration -Resolved. -Continue to monitor creatinine. Strict ins and out. DVT GI prophylaxis -SCDs -Lovenox -No GI prophylaxis indicated Discharge Planning: Transfer to [facility] when BP more stable
[2018-01-13] MEDS: hydroCHLOROthiazide 25 MG Tablet PO SCH (10:01)
[2018-01-13] MEDS: niCARdipine Inj 25 MG in Sodium Chlor 0.9% Inj 240 ML IV.CONT PRN ×4 (15:29→21:00)
[2018-01-13] MEDS: Acetaminophen 325 MG Tablet PO PRN (19:37)
[2018-01-13] MEDS: Lisinopril 10 MG Tablet PO SCH (21:37)
[2018-01-14] MEDS: niCARdipine Inj 25 MG in Sodium Chlor 0.9% Inj 240 ML IV.CONT PRN ×12 (00:36→23:31)
[2018-01-14] MEDS: Acetaminophen 325 MG Tablet PO PRN ×3 (02:32→18:42)
[2018-01-14] MEDS: Enoxaparin Inj 40 MG/0.4 ML Syringe SQ SCH (02:34)
[2018-01-14] MEDS: hydrALAZINE 25 MG Tablet PO PRN ×2 (04:08→17:13)
[2018-01-14] MEDS: Chlorhexidine Gluconate 2% 1 Pack (2 Cloths) TOPICAL SCH (04:08)
[2018-01-14 05:07] LABS: Baso # (Auto) 0.3 th/mm3 (0.0-0.2); Baso % (Auto) 1.5 % (0.0-2.0); Eos # (Auto) 0.5 th/mm3 (0.0-0.4); Eos % (Auto) 2.5 % (0.0-4.0); Hematocrit 41.2 % (39.0-51.0); Lymph # (Auto) 2.7 th/mm3 (1.0-4.8); Lymph % (Auto) 13.3 % (9.0-44.0); Mean Corpuscular HGB Conc 34.1 % (32.0-36.0); Mean Corpuscular Hemoglobin 30.8 pg (27.0-34.0); Mean Corpuscular Volume 90.4 fL (80.0-100.0); Mean Platelet Volume 8.6 fL (7.0-11.0); Mono # (Auto) 0.8 th/mm3 (0.0-0.9); Mono % (Auto) 4.2 % (0.0-8.0); Neut # (Auto) 15.7 th/mm3 (1.8-7.7); Neut % (Auto) 78.5 % (16.0-70.0); Platelet Count 233 th/mm3 (150-450); Red Blood Count 4.56 mil/mm3 (4.50-5.90); Red Cell Distribution Width 14.2 % (11.6-17.2)
[2018-01-14 05:33] LABS: Anion Gap 9 meq/L (5-15); Blood Urea Nitrogen 11 mg/dL (7-18); Calcium 8.6 mg/dL (8.5-10.1); Carbon Dioxide 27.7 meq/L (21.0-32.0); Chloride 103 meq/L (98-107); Glomerular Filtration Rate Greater Than 89 mL/min (>89); Glucose,Random 106 mg/dL (74-106); Magnesium 2.3 mg/dL (1.5-2.5); Potassium 3.5 meq/L (3.5-5.1); Sodium 140 meq/L (136-145)
[2018-01-14 06:18] LABS: Eosinophils 2 % (0-4); Lymphocytes 17 % (9-44); Metamyelocytes 3 % (0-1); Monocytes 8 % (0-8)
[2018-01-14 06:32] LABS: Platelet Estimate Normal (Normal); Platelet Morphology Normal (Normal)
[2018-01-14] MEDS: Lisinopril 10 MG Tablet PO SCH (08:16)
[2018-01-14] MEDS: amLODIPine 10 MG Tablet PO SCH (08:16)
[2018-01-14] MEDS: hydroCHLOROthiazide 25 MG Tablet PO SCH (08:16)
[2018-01-14] MEDS: Azithromycin 250 MG Tablet PO SCH (08:17)
[2018-01-14] MEDS: Senna/Docusate Sodium 8.6/50 MG Tablet PO SCH ×2 (08:17→20:01)
--- NOTE | 2018-01-14 10:39 | P.PN ---
Subjective Interval history: Follow-up hypertension. Remains severely elevated started on Cardene drip yesterday. Today BP is improved discussed with nursing to wean and discontinue Cardene drip keep blood pressure less than 160/90. Patient denies headache, dizziness, chest pain and shortness of breath. Reports of right upper back discomfort from starting new exercise doing push ups. Physical Exam Vital signs: Vital Signs 01/13/18 12:00 01/13/18 14:00 01/13/18 16:00 Temperature 98.0 F 98.2 F Pulse Rate 65 69 71 Respiratory Rate 34 H Blood Pressure 219/104 H 190/84 H Pulse Oximetry 92 L 91 L 01/13/18 19:52 01/13/18 20:00 01/14/18 00:00 Temperature 98.5 F 98.3 F Pulse Rate 74 64 Respiratory Rate 20 24 Blood Pressure 180/67 H 179/76 H Pulse Oximetry 93 L 93 L 92 L 01/14/18 03:10 01/14/18 04:00 01/14/18 08:00 Temperature 98.0 F 98.7 F Pulse Rate 63 69 Respiratory Rate 18 24 21 Blood Pressure 190/83 H 164/80 H Pulse Oximetry 91 L 93 L 01/14/18 08:36 Temperature Pulse Rate 69 Respiratory Rate Blood Pressure Pulse Oximetry Intake & Output 01/13/18 01/14/18 01/14/18 18:59 06:59 18:59 Intake Total 750 / 750 2220 / 2220 500 / 500 Output Total 2100 / 2100 2450 / 2450 Balance -1350 / -1350 -230 / -230 500 / 500 Weight 124.5 kg Intake: IV 350 / 350 1500 / 1500 500 / 500 Cardene Inj 25 MG In NS Inj 240 250 / 250 1500 / 1500 500 / 500 ML @ 5 MG/HR 50 mls/hr IV.CONT TITRATE PRN Rx#:[id number] Rocephin Inj 2,000 MG In NS Inj 100 / 100 100 ML @ 200 mls/hr IV.SIG Q24H RAVI Rx#:[id number] Oral 400 / 400 720 / 720 Output: Urine 2100 / 2100 2450 / 2450 Other: Date of Last Bowel Movement 01/13/18 01/11/18 01/13/18 # Bowel Movements 1 Narrative: GENERAL: Well-developed, obese in no distress SKIN: Warm and dry. CARDIOVASCULAR: Regular rate and rhythm. RESPIRATORY: No accessory muscle use. Clear to auscultation. Breath sounds equal bilaterally. GASTROINTESTINAL: Abdomen soft, non-tender, nondistended. MUSCULOSKELETAL: Extremities without clubbing, cyanosis but with trace bilateral leg edema. No obvious deformities. NEUROLOGICAL: Awake and alert. No obvious cranial nerve deficits. Motor grossly within normal limits. Five out of 5 muscle strength in the arms and legs. Normal speech. PSYCHIATRIC: Appropriate mood and affect; insight and judgment normal. Results - Labs CBC & Chem 7: 01/14/18 04:08 01/14/18 04:08 Laboratory Results - last 24 hr 01/14/18 01/14/18 04:08 04:08 WBC 20.0 H RBC 4.56 Hgb 14.0 Hct 41.2 MCV 90.4 MCH 30.8 MCHC 34.1 RDW 14.2 Plt Count 233 MPV 8.6 Prelim Diff (Auto) Slide review pending Neut % (Auto) 78.5 H Lymph % (Auto) 13.3 [place] % (Auto) 4.2 Eos % (Auto) 2.5 Baso % (Auto) 1.5 Neut # (Auto) 15.7 H Lymph # (Auto) 2.7 [place] # (Auto) 0.8 Eos # (Auto) 0.5 H Baso # (Auto) 0.3 H WBC Differential Manual diff final Seg Neuts % (Manual) 57 Band Neuts % (Manual) 13 H Lymphocytes % (Manual) 17 Monocytes % (Manual) 8 Eosinophils % (Manual) 2 Metamyelocytes % (Man) 3 H Abs Neuts (Manual) 14.6 H Differential Comment . Platelet Estimate Normal Platelet Morphology Normal Sodium 140 Potassium 3.5 Chloride 103 Carbon Dioxide 27.7 Anion Gap 9 BUN 11 Creatinine 0.91 Estimated GFR Greater than 89 Random Glucose 106 Calcium 8.6 Magnesium 2.3 Microbiology 01/09/18 17:15 Blood - Peripheral Aerobic Blood Culture - Final Streptococcus pneumoniae 01/09/18 17:15 Blood - Peripheral Anaerobic Blood Culture - Final Streptococcus pneumoniae 01/12/18 11:41 Blood - Peripheral Aerobic Blood Culture - Preliminary No growth in 1 day 01/12/18 11:41 Blood - Peripheral Anaerobic Blood Culture - Preliminary No growth in 1 day 01/12/18 11:35 Blood - Peripheral Aerobic Blood Culture - Preliminary No growth in 1 day 01/12/18 11:35 Blood - Peripheral Anaerobic Blood Culture - Preliminary No growth in 1 day - Imaging ITS Impressions Chest X-Ray 01/09/18 17:24 CONCLUSION: Right upper lobe pneumonia. - Procedures none Assessment and Plan - Plan Bacteremia with Streptococcus pneumoniae -4 out of 4 positive. Sensitivities stated that resistant to oxacillin so assume that organism is resistant to penicillin. Discontinued Zosyn and continue Rocephin. Repeat blood cultures negative to date -Leukocytosis slightly worse but clinically stable. Continue to monitor. Pneumonia. As above -Community-acquired -Influenza antigen negative -PRN nebs, pulm toilet, incentive spirometer -Rocephin. Switched to p.o. azithromycin. Hypotension -Resolved. Severe hypertension -Wean and discontinue Cardene drip, increase lisinopril to 40 mg twice a day and continue Norvasc 10 mg daily and undergo trazodone 25 mg daily Acute kidney injury -Dehydration -Resolved. -Continue to monitor creatinine. Strict ins and out. DVT GI prophylaxis -SCDs -Lovenox -No GI prophylaxis indicated Discharge Planning: Keep in ICU while on Cardene drip.
[2018-01-14] MEDS: Lisinopril 20 MG Tablet PO SCH ×2 (10:46→21:12)
[2018-01-15] MEDS: niCARdipine Inj 25 MG in Sodium Chlor 0.9% Inj 240 ML IV.CONT PRN ×3 (01:23→07:30)
[2018-01-15] MEDS: Enoxaparin Inj 40 MG/0.4 ML Syringe SQ SCH (03:46)
[2018-01-15 05:30] LABS: Baso # (Auto) 0.2 th/mm3 (0.0-0.2); Baso % (Auto) 0.9 % (0.0-2.0); Eos # (Auto) 0.4 th/mm3 (0.0-0.4); Hematocrit 43.8 % (39.0-51.0); Hemoglobin 14.7 gm/dL (13.0-17.0); Lymph # (Auto) 2.5 th/mm3 (1.0-4.8); Lymph % (Auto) 11.8 % (9.0-44.0); Mean Corpuscular HGB Conc 33.5 % (32.0-36.0); Mean Corpuscular Hemoglobin 30.6 pg (27.0-34.0); Mean Corpuscular Volume 91.4 fL (80.0-100.0); Mean Platelet Volume 8.6 fL (7.0-11.0); Mono # (Auto) 1.5 th/mm3 (0.0-0.9); Mono % (Auto) 6.8 % (0.0-8.0); Neut # (Auto) 16.8 th/mm3 (1.8-7.7); Neut % (Auto) 78.5 % (16.0-70.0); Platelet Count 307 th/mm3 (150-450); Red Blood Count 4.79 mil/mm3 (4.50-5.90); Red Cell Distribution Width 14.7 % (11.6-17.2); White Blood Count 21.5 th/mm3 (4.0-11.0)
[2018-01-15 06:01] LABS: Anion Gap 10 meq/L (5-15); Blood Urea Nitrogen 12 mg/dL (7-18); Calcium 8.8 mg/dL (8.5-10.1); Carbon Dioxide 24.8 meq/L (21.0-32.0); Chloride 104 meq/L (98-107); Glomerular Filtration Rate Greater Than 89 mL/min (>89); Glucose,Random 96 mg/dL (74-106); Magnesium 2.1 mg/dL (1.5-2.5); Potassium 3.5 meq/L (3.5-5.1); Sodium 139 meq/L (136-145)
[2018-01-15 07:40] LABS: Lymphocytes 16 % (9-44); Metamyelocytes 7 % (0-1); Monocytes 10 % (0-8); Myelocytes 1 % (0-0); Platelet Estimate Normal (Normal); Platelet Morphology Normal (Normal)
[2018-01-15] MEDS ORDERED: Vancomycin Consult Pharmacy OTHER PRN (09:30)
[2018-01-15] MEDS ORDERED: SODIUM CHLOR 0.9% IV.SIG ONE (09:31)
[2018-01-15] MEDS ORDERED: VANCOMYCIN IV.SIG ONE (09:31)
[2018-01-15] MEDS: Lisinopril 20 MG Tablet PO SCH ×2 (09:51→21:33)
[2018-01-15] MEDS: amLODIPine 10 MG Tablet PO SCH (09:52)
[2018-01-15] MEDS: Azithromycin 250 MG Tablet PO SCH (09:52)
[2018-01-15] MEDS: hydroCHLOROthiazide 25 MG Tablet PO SCH (09:52)
--- NOTE | 2018-01-15 10:52 | P.PN ---
Subjective Interval history: Follow-up pneumonia, strep bacteremia and hypertension. He is doing okay no fever but still with significant leukocytosis. He is stable for transfer to floor Physical Exam Vital signs: Vital Signs 01/14/18 12:00 01/14/18 14:00 01/14/18 14:15 Temperature 98.6 F Pulse Rate 73 74 73 Respiratory Rate 21 Blood Pressure 177/78 H 164/64 H Pulse Oximetry 92 L 93 L 01/14/18 14:31 01/14/18 15:01 01/14/18 15:12 Temperature Pulse Rate 79 76 Respiratory Rate Blood Pressure 178/81 H 168/77 H Pulse Oximetry 93 L 89 L 91 L 01/14/18 16:00 01/14/18 16:12 01/14/18 16:15 Temperature 98.4 F Pulse Rate 75 74 74 Respiratory Rate 33 H 25 H 30 H Blood Pressure 156/75 H 156/75 H 171/80 H Pulse Oximetry 91 L 94 L 92 L 01/14/18 16:30 01/14/18 16:45 01/14/18 17:00 Temperature Pulse Rate 72 73 73 Respiratory Rate 25 H 26 H 32 H Blood Pressure 188/86 H 195/85 H 195/84 H Pulse Oximetry 90 L 91 L 93 L 01/14/18 17:07 01/14/18 17:08 01/14/18 17:15 Temperature Pulse Rate 76 76 75 Respiratory Rate 32 H 30 H 30 H Blood Pressure 195/87 H 190/83 H 195/85 H Pulse Oximetry 91 L 92 L 93 L 01/14/18 17:30 01/14/18 17:45 01/14/18 18:00 Temperature Pulse Rate 76 80 79 Respiratory Rate 30 H 32 H 34 H Blood Pressure 202/93 H 196/80 H 200/92 H Pulse Oximetry 92 L 91 L 92 L 01/14/18 18:15 01/14/18 18:30 01/14/18 18:45 Temperature Pulse Rate 79 78 80 Respiratory Rate 28 H 34 H 34 H Blood Pressure 184/73 H 193/88 H 174/73 H Pulse Oximetry 94 L 92 L 89 L 01/14/18 19:00 01/14/18 19:16 01/14/18 19:30 Temperature Pulse Rate 77 81 83 Respiratory Rate 36 H 34 H 27 H Blood Pressure 163/67 H 182/80 H 155/67 H Pulse Oximetry 90 L 91 L 92 L 01/14/18 19:45 01/14/18 20:00 01/14/18 20:15 Temperature 99.0 F Pulse Rate 80 77 76 Respiratory Rate 29 H 27 H 23 Blood Pressure 150/66 H 153/68 H 153/70 H Pulse Oximetry 90 L 93 L 92 L 01/14/18 20:30 01/14/18 21:00 01/14/18 21:06 Temperature Pulse Rate 75 79 82 Respiratory Rate 27 H 31 H 29 H Blood Pressure 155/70 H 155/99 H Pulse Oximetry 92 L 90 L 94 L 01/14/18 22:00 01/14/18 23:00 01/14/18 23:35 Temperature Pulse Rate 74 74 79 Respiratory Rate 28 H 29 H 30 H Blood Pressure 165/77 H Pulse Oximetry 99 98 100 01/14/18 23:45 01/15/18 00:00 01/15/18 00:08 Temperature 98.6 F Pulse Rate 81 77 Respiratory Rate 28 H 33 H 22 Blood Pressure 166/81 H Pulse Oximetry 100 100 01/15/18 00:31 01/15/18 00:45 01/15/18 01:00 Temperature Pulse Rate 75 77 75 Respiratory Rate 28 H 30 H 28 H Blood Pressure 148/68 H 164/77 H 164/77 H Pulse Oximetry 99 100 100 01/15/18 01:15 01/15/18 01:30 01/15/18 01:45 Temperature Pulse Rate 77 81 80 Respiratory Rate 24 34 H 29 H Blood Pressure 159/77 H 167/83 H 161/73 H Pulse Oximetry 100 100 100 01/15/18 02:00 01/15/18 02:15 01/15/18 02:30 Temperature Pulse Rate 75 72 73 Respiratory Rate 25 H 23 22 Blood Pressure 163/77 H 155/71 H 152/74 H Pulse Oximetry 100 99 98 01/15/18 02:45 01/15/18 03:00 01/15/18 03:15 Temperature Pulse Rate 74 78 75 Respiratory Rate 23 27 H 23 Blood Pressure 159/77 H 153/79 H 155/77 H Pulse Oximetry 97 99 100 01/15/18 03:30 01/15/18 03:45 01/15/18 04:00 Temperature 98.3 F Pulse Rate 71 72 73 Respiratory Rate 22 23 27 H Blood Pressure 157/77 H 155/75 H 149/70 H Pulse Oximetry 100 98 98 01/15/18 04:15 01/15/18 04:30 01/15/18 04:46 Temperature 98.3 F Pulse Rate 75 76 78 Respiratory Rate 33 H 29 H 25 H Blood Pressure 153/72 H 159/75 H 162/86 H Pulse Oximetry 100 100 100 01/15/18 05:00 01/15/18 05:15 01/15/18 05:30 Temperature Pulse Rate 73 80 79 Respiratory Rate 22 22 27 H Blood Pressure 162/76 H 158/83 H 161/76 H Pulse Oximetry 100 100 100 01/15/18 05:46 01/15/18 06:00 01/15/18 08:12 Temperature Pulse Rate 76 74 Respiratory Rate 24 Blood Pressure 160/79 H Pulse Oximetry 100 100 Intake & Output 01/14/18 01/15/18 01/15/18 18:59 06:59 18:59 Intake Total 1999 / 1999 1850 / 1850 Output Total 1800 / 1800 2850 / 2850 Balance 200 / 200 -1000 / -1000 Weight 124.5 kg Intake: IV 1500 / 1500 1250 / 1250 Cardene Inj 25 MG In NS Inj 240 1500 / 1500 1250 / 1250 ML @ 5 MG/HR 50 mls/hr IV.CONT TITRATE PRN Rx#:[id number] Oral 500 / 500 600 / 600 Output: Urine 1800 / 1800 2850 / 2850 Other: Date of Last Bowel Movement 01/14/18 12/14/17 # Bowel Movements 1 1 Narrative: GENERAL: Well-developed, obese in no distress SKIN: Warm and dry. CARDIOVASCULAR: Regular rate and rhythm. Soft systolic murmur RESPIRATORY: No accessory muscle use. Clear to auscultation. Breath sounds equal bilaterally. GASTROINTESTINAL: Abdomen soft, non-tender, nondistended. MUSCULOSKELETAL: Extremities without clubbing, cyanosis but with trace bilateral leg edema. No obvious deformities. NEUROLOGICAL: Awake and alert. No obvious cranial nerve deficits. Motor grossly within normal limits. Five out of 5 muscle strength in the arms and legs. Normal speech. Results - Labs CBC & Chem 7: 01/15/18 04:23 01/15/18 04:23 Laboratory Results - last 24 hr 01/15/18 01/15/18 04:23 04:23 WBC 21.5 H RBC 4.79 Hgb 14.7 Hct 43.8 MCV 91.4 MCH 30.6 MCHC 33.5 RDW 14.7 Plt Count 307 D MPV 8.6 Prelim Diff (Auto) Slide review pending Neut % (Auto) 78.5 H Lymph % (Auto) 11.8 [place] % (Auto) 6.8 Eos % (Auto) 2.0 Baso % (Auto) 0.9 Neut # (Auto) 16.8 H Lymph # (Auto) 2.5 [place] # (Auto) 1.5 H Eos # (Auto) 0.4 Baso # (Auto) 0.2 WBC Differential Manual diff final Seg Neuts % (Manual) 62 Band Neuts % (Manual) 3 Lymphocytes % (Manual) 16 Monocytes % (Manual) 10 H Basophils % (Manual) 1 Metamyelocytes % (Man) 7 H Myelocytes % (Man) 1 H Abs Neuts (Manual) 15.7 H Differential Comment . Platelet Estimate Normal Platelet Morphology Normal Sodium 139 Potassium 3.5 Chloride 104 Carbon Dioxide 24.8 Anion Gap 10 BUN 12 Creatinine 0.91 Estimated GFR Greater than 89 Random Glucose 96 Calcium 8.8 Magnesium 2.1 Microbiology 01/12/18 11:41 Blood - Peripheral Aerobic Blood Culture - Preliminary No growth in 2 days 01/12/18 11:41 Blood - Peripheral Anaerobic Blood Culture - Preliminary No growth in 2 days 01/12/18 11:35 Blood - Peripheral Aerobic Blood Culture - Preliminary No growth in 2 days 01/12/18 11:35 Blood - Peripheral Anaerobic Blood Culture - Preliminary No growth in 2 days - Procedures none Assessment and Plan - Plan Bacteremia with Streptococcus pneumoniae -4 out of 4 positive. Resistant to a lot of antibiotics except vancomycin SARA 0.5 and Levaquin SARA of 2. Will switch to IV vancomycin discontinue Rocephin. Repeat blood cultures negative to date -Leukocytosis slightly worse but clinically stable. Continue to monitor. Pneumonia. As above -Community-acquired -Influenza antigen negative -PRN nebs, pulm toilet, incentive spirometer -As above. Switched to p.o. azithromycin. Hypotension -Resolved. Severe hypertension. Improving -Discontinue Cardene drip, continue lisinopril 40 mg twice a day, Norvasc 10 mg daily and hydrochlorothiazide 25 mg daily Acute kidney injury -Dehydration -Resolved. -Continue to monitor creatinine. Strict ins and out. DVT GI prophylaxis -SCDs -Lovenox -No GI prophylaxis indicated Discharge Planning: Possible discharge in the morning
[2018-01-15] MEDS: Senna/Docusate Sodium 8.6/50 MG Tablet PO SCH ×2 (13:14→21:34)
[2018-01-15] MEDS: Vancomycin Inj 2,250 MG in Sodium Chlor 0.9% Inj 500 ML IV.SIG SCH (13:15)
[2018-01-15] MEDS: Acetaminophen 325 MG Tablet PO PRN (21:45)
[2018-01-16] MEDS: Vancomycin Inj 2,250 MG in Sodium Chlor 0.9% Inj 500 ML IV.SIG SCH ×2 (00:22→12:59)
[2018-01-16] MEDS: Enoxaparin Inj 40 MG/0.4 ML Syringe SQ SCH (02:48)
[2018-01-16 07:06] LABS: Baso # (Auto) 0.2 th/mm3 (0.0-0.2); Eos # (Auto) 0.4 th/mm3 (0.0-0.4); Eos % (Auto) 1.9 % (0.0-4.0); Hematocrit 42.5 % (39.0-51.0); Hemoglobin 14.5 gm/dL (13.0-17.0); Lymph # (Auto) 3.2 th/mm3 (1.0-4.8); Lymph % (Auto) 13.9 % (9.0-44.0); Mean Corpuscular Hemoglobin 31.3 pg (27.0-34.0); Mean Corpuscular Volume 91.9 fL (80.0-100.0); Mean Platelet Volume 8.8 fL (7.0-11.0); Mono # (Auto) 1.6 th/mm3 (0.0-0.9); Mono % (Auto) 6.7 % (0.0-8.0); Neut # (Auto) 17.9 th/mm3 (1.8-7.7); Neut % (Auto) 76.5 % (16.0-70.0); Platelet Count 319 th/mm3 (150-450); Red Blood Count 4.62 mil/mm3 (4.50-5.90); Red Cell Distribution Width 14.6 % (11.6-17.2); White Blood Count 23.3 th/mm3 (4.0-11.0)
[2018-01-16 07:22] LABS: Anion Gap 9 meq/L (5-15); Blood Urea Nitrogen 16 mg/dL (7-18); Calcium 8.8 mg/dL (8.5-10.1); Carbon Dioxide 26.8 meq/L (21.0-32.0); Chloride 104 meq/L (98-107); Glomerular Filtration Rate Greater Than 89 mL/min (>89); Glucose,Random 70 mg/dL (74-106); Magnesium 2.3 mg/dL (1.5-2.5); Potassium 3.9 meq/L (3.5-5.1); Sodium 140 meq/L (136-145)
[2018-01-16 08:34] LABS: Eosinophils 2 % (0-4); Lymphocytes 16 % (9-44); Metamyelocytes 2 % (0-1); Monocytes 7 % (0-8); Myelocytes 3 % (0-0)
[2018-01-16 08:35] LABS: Platelet Estimate Normal (Normal); Platelet Morphology Normal (Normal); RBC Morphology Normal (Normal)
[2018-01-16] MEDS: amLODIPine 10 MG Tablet PO SCH (08:47)
[2018-01-16] MEDS: hydroCHLOROthiazide 25 MG Tablet PO SCH (08:47)
[2018-01-16] MEDS: Lisinopril 20 MG Tablet PO SCH ×2 (08:47→21:26)
[2018-01-16] MEDS: Senna/Docusate Sodium 8.6/50 MG Tablet PO SCH ×2 (08:51→21:29)
--- NOTE | 2018-01-16 12:23 | P.PN ---
Subjective Interval history: Follow-up strep bacteremia, pneumonia and hypertension. Patient is doing okay. No fever and diarrhea. Physical Exam Vital signs: Vital Signs 01/15/18 14:00 01/15/18 14:49 01/15/18 16:00 Temperature 98.3 F Pulse Rate 78 74 73 Respiratory Rate 21 30 H Blood Pressure 148/83 H 148/83 H Pulse Oximetry 100 100 01/15/18 17:38 01/15/18 17:39 01/15/18 20:00 Temperature 98.1 F Pulse Rate 86 80 74 Respiratory Rate 28 H 20 Blood Pressure 188/91 H 135/91 H 179/86 H Pulse Oximetry 95 01/16/18 00:00 01/16/18 04:00 01/16/18 08:00 Temperature 98.5 F 98.3 F 98.1 F Pulse Rate 72 72 69 Respiratory Rate 20 22 18 Blood Pressure 156/80 H 156/80 H 137/78 Pulse Oximetry 92 L 93 L 97 01/16/18 12:00 Temperature 98.4 F Pulse Rate 69 Respiratory Rate 18 Blood Pressure 174/81 H Pulse Oximetry 97 Intake & Output 01/15/18 01/16/18 01/16/18 18:59 06:59 18:59 Intake Total 1720 / 1720 1285.0 / 1285.0 Output Total 1100 / 1100 Balance 620 / 620 1285.0 / 1285.0 Weight 124.738 kg Intake: IV 1045.0 / 1045.0 Vancomycin Inj 2,250 MG In NS 1045.0 / 1045.0 Inj 500 ML @ 250 mls/hr IV.SIG Q12H [facility] Rx#:[id number] Oral 720 / 720 240 / 240 Other 1000 / 1000 Output: Urine 1100 / 1100 Other: Other Intake Source Saline Solution # Voids 2 3 Date of Last Bowel Movement 01/15/18 # Bowel Movements 1 Narrative: GENERAL: Well-developed, obese in no distress SKIN: Warm and dry. CARDIOVASCULAR: Regular rate and rhythm. Soft systolic murmur RESPIRATORY: No accessory muscle use. Clear to auscultation. Breath sounds equal bilaterally. GASTROINTESTINAL: Abdomen soft, non-tender, nondistended. MUSCULOSKELETAL: Extremities without clubbing, cyanosis but with trace bilateral leg edema. No obvious deformities. NEUROLOGICAL: Awake and alert. No obvious cranial nerve deficits. Motor grossly within normal limits. Five out of 5 muscle strength in the arms and legs. Normal speech. Results - Labs CBC & Chem 7: 01/16/18 03:36 01/16/18 03:36 Laboratory Results - last 24 hr 01/16/18 01/16/18 03:36 03:36 WBC 23.3 H RBC 4.62 Hgb 14.5 Hct 42.5 MCV 91.9 MCH 31.3 MCHC 34.0 RDW 14.6 Plt Count 319 MPV 8.8 Prelim Diff (Auto) Slide review pending Neut % (Auto) 76.5 H Lymph % (Auto) 13.9 [place] % (Auto) 6.7 Eos % (Auto) 1.9 Baso % (Auto) 1.0 Neut # (Auto) 17.9 H Lymph # (Auto) 3.2 [place] # (Auto) 1.6 H Eos # (Auto) 0.4 Baso # (Auto) 0.2 WBC Differential Manual diff final Seg Neuts % (Manual) 67 Band Neuts % (Manual) 3 Lymphocytes % (Manual) 16 Monocytes % (Manual) 7 Eosinophils % (Manual) 2 Metamyelocytes % (Man) 2 H Myelocytes % (Man) 3 H Abs Neuts (Manual) 17.5 H Differential Comment . Platelet Estimate Normal Platelet Morphology Normal RBC Morphology Normal Sodium 140 Potassium 3.9 Chloride 104 Carbon Dioxide 26.8 Anion Gap 9 BUN 16 Creatinine 0.95 Estimated GFR Greater than 89 Random Glucose 70 L Calcium 8.8 Magnesium 2.3 Microbiology 01/12/18 11:41 Blood - Peripheral Aerobic Blood Culture - Preliminary No growth in 4 days 01/12/18 11:41 Blood - Peripheral Anaerobic Blood Culture - Preliminary No growth in 4 days 01/12/18 11:35 Blood - Peripheral Aerobic Blood Culture - Preliminary No growth in 4 days 01/12/18 11:35 Blood - Peripheral Anaerobic Blood Culture - Preliminary No growth in 4 days - Procedures none Assessment and Plan - Plan Bacteremia with Streptococcus pneumoniae -4 out of 4 positive. Resistant to a lot of antibiotics except vancomycin SARA 0.5 and Levaquin SARA of 2. Continue IV vancomycin discontinue Rocephin. Repeat blood cultures negative to date -Leukocytosis worsening but clinically stable. Continue to monitor. Consult infectious disease Pneumonia. As above -Community-acquired -Influenza antigen negative -PRN nebs, pulm toilet, incentive spirometer -As above. Switched to p.o. azithromycin. Hypotension -Resolved. Severe hypertension. Improving -Discontinue Cardene drip, continue lisinopril 40 mg twice a day, Norvasc 10 mg daily and hydrochlorothiazide 25 mg daily Acute kidney injury -Dehydration -Resolved. -Continue to monitor creatinine. Strict ins and out. DVT GI prophylaxis -SCDs -Lovenox -No GI prophylaxis indicated Discharge Planning: Not ready for discharge with worsening leukocytosis. Needs ID clearance.
[2018-01-16] MEDS: Acetaminophen 325 MG Tablet PO PRN ×2 (13:06→21:26)
[2018-01-16] MEDS: hydrALAZINE 25 MG Tablet PO SCH ×2 (15:32→21:28)
--- NOTE | 2018-01-16 18:07 | P.CONID ---
History of Present Illness Service: ID Consult date: 01/16/18 Requesting Physician: John He Reason for Consult: leukocytosis, pneumococcaul sepsis Primary Care Provider: No Primary Care Physician History of Present Illness: 52 yo male w/o sign past med history (just HTN)presented with few days of fever , chills, productive cought with candie sputum HIs admission CXR showed RUL pneumonia His blood clx were positive for Stre pnuemo MDRO strain (S only to vanco and Levaqine) He is on vancomycin, azithromycin He reports significal improvement in his symptoms. He has occasional cough with clear sputum, no fevers, no chills Repeat bloodc lx are negative However, his WBC is going up and is 23 K today He is not on sterroids denies diarrhea, abd pain Review of Systems All other systems reviewed negative except as stated in HPI PMFSH - History History Provided By: Patient - Medical / Surgical Hx Neg / Unobtainable Surgical History: No Previous Surgery - Medical History Medical History: Medical History (Last Updated 01/17/18 @ 00:06 by Seema Hernandes MD) Hypertension (Acute) - Family History Family History: Family History (Last Updated 01/17/18 @ 00:06 by Seema Hernandes MD) Other No pertinent family history - Social History I have reviewed the patient's Social History: Yes - Tobacco History Second Hand Smoke Exposure: No Tobacco Use In Past 30 Days: No Smoking Status: Former smoker Tobacco Type: Cigarettes - Alcohol History How Often Do You Have a Drink Containing Alcohol: Monthly or less - Substance Use History Substance History: Past History - Substance Use Type Crack/Cocaine Status: Sustained Remission Route Used: Inhalation - Travel History Recent Travel in the [place] Within the Last 8 Weeks: No Recent Travel Out of the Country Within the Last 8 Weeks: No - Immunization History Tetanus Immunization: >5 Years Hx Influenza Vaccine This Season: No Medications and Allergies Active Medications: Active Medications Acetaminophen (Tylenol) 650 mg PO Q6H PRN PRN Reason: PAIN 1-10 AND/OR FEVER >101F Last Admin: 01/16/18 13:06 Dose: 650 mg Al Hydroxide/Mg Hydroxide (Milk Of Magnesia Liq) 30 ml PO Q12H PRN PRN Reason: Mild Constipation Albuterol (Duoneb Neb (Prn)) 1 ampul NEB Q2HR NEB PRN PRN Reason: WHEEZING Amlodipine Besylate (Norvasc) 10 mg PO DAILY [facility] Last Admin: 01/16/18 08:47 Dose: 10 mg Bisacodyl (Dulcolax Supp) 10 mg RECTAL DAILY PRN PRN Reason: SEVERE CONSITIPATION Clonidine HCl (Catapres) 0.1 mg PO Q6H PRN PRN Reason: SEE LABEL COMMENTS Last Admin: 01/14/18 02:32 Dose: 0.1 mg Enalaprilat (Vasotec Inj) 2.5 mg IV.PUSH Q6H PRN PRN Reason: SEE LABEL COMMENTS Last Admin: 01/15/18 17:09 Dose: 2.5 mg Enoxaparin Sodium (Lovenox Inj) 40 mg SQ Q24H [facility] Last Admin: 01/16/18 02:48 Dose: 40 mg Hydralazine HCl (Apresoline) 25 mg PO Q4H PRN PRN Reason: SEE LABEL COMMENTS Last Admin: 01/14/18 17:13 Dose: 25 mg Hydralazine HCl (Apresoline) 25 mg PO BID [facility] Last Admin: 01/16/18 15:32 Dose: 25 mg Hydrochlorothiazide (Hydrodiuril) 25 mg PO DAILY [facility] Last Admin: 01/16/18 08:47 Dose: 25 mg Vancomycin HCl 2,250 mg/ (Sodium Chloride) 522.5 mls @ 250 mls/hr IV.SIG Q12H [facility] Last Infusion: 01/16/18 15:44 Dose: Infused Lactulose (Lactulose Liq) 30 ml PO DAILY PRN PRN Reason: SEVERE CONSITIPATION Lisinopril (Prinivil) 40 mg PO BID [facility] Last Admin: 01/16/18 08:47 Dose: 40 mg Metoclopramide HCl (Reglan Inj) 5 mg IV.PUSH Q6HR PRN; Protocol PRN Reason: NAUSEA OR VOMITING Miscellaneous Information ([facility] Ordered Lab Info) 0 each OTHER ONCE ONE Stop: 01/17/18 00:46 Ondansetron HCl (Zofran Inj) 4 mg IV.PUSH Q6H PRN PRN Reason: NAUSEA OR VOMITING Last Admin: 01/11/18 16:37 Dose: 4 mg Pharmacy Profile Note (Vancomycin Consult Pharmacy) 1 each OTHER UNSCH PRN PRN Reason: Pharmacy to dose Potassium Chloride (K-Dur) 20 meq PO DAILY [facility] Last Admin: 01/16/18 08:47 Dose: 20 meq Senna/Docusate Sodium ([place]-Colace) 1 tab PO BID [facility] Last Admin: 01/16/18 08:51 Dose: Not Given Sodium Chloride (Ns Flush) 2 ml IV.FLUSH PRN PRN PRN Reason: FLUSH AFTER USING IV ACCESS Last Admin: 01/14/18 20:00 Dose: 2 ml Sodium Chloride (Ns Flush) 2 ml IV.FLUSH BID [facility] Last Admin: 01/16/18 08:51 Dose: 2 ml Temazepam (Restoril) 15 mg PO HS PRN PRN Reason: INSOMNIA Allergies Allergy/AdvReac Type Severity Reaction Status Date / Time No Known Allergies Allergy Unknown none Uncoded 01/09/18 17:04 Home Medications Medication Instructions Recorded Confirmed Type No Known Home Medications 01/09/18 01/09/18 History Exam Vital signs: Vital Signs 01/15/18 20:00 01/16/18 00:00 01/16/18 04:00 Temperature 98.1 F 98.5 F 98.3 F Pulse Rate 74 72 72 Respiratory Rate 20 20 22 Blood Pressure 179/86 H 156/80 H 156/80 H Pulse Oximetry 95 92 L 93 L 01/16/18 08:00 01/16/18 12:00 01/16/18 16:00 Temperature 98.1 F 98.4 F 98.5 F Pulse Rate 69 69 70 Respiratory Rate 18 18 18 Blood Pressure 137/78 174/81 H 150/79 H Pulse Oximetry 97 97 98 Intake & Output 01/15/18 01/16/18 01/16/18 18:59 06:59 18:59 Intake Total 1720 / 1720 1285.0 / 1285.0 530 / 530 Output Total 1100 / 1100 Balance 620 / 620 1285.0 / 1285.0 530 / 530 Weight 124.738 kg Intake: IV 1045.0 / 1045.0 530 / 530 Vancomycin Inj 2,250 MG In NS 1045.0 / 1045.0 530 / 530 Inj 500 ML @ 250 mls/hr IV.SIG Q12H [facility] Rx#:[id number] Oral 720 / 720 240 / 240 Other 1000 / 1000 Output: Urine 1100 / 1100 Other: Other Intake Source Saline Solution # Voids 2 3 Date of Last Bowel Movement 01/15/18 # Bowel Movements 1 - Constitutional no acute distress, obese - Routine HEENT Exam Head: Present: normocephalic, atraumatic Eye: Present: EOMI, PERRL ENT: Present: mucous membranes moist, oropharynx clear, dentition normal - Routine Neck Exam Present: supple, full ROM. Absent: JVD, lymphadenopathy - Routine Chest/Breast/Axilla Exam Axillae: Absent: lymphadenopathy - Routine Respiratory Exam Present: decreased breath sounds, CTA bilaterally. Absent: accessory muscle use - Routine Cardiovascular Exam Present: RRR, S1, S2. Absent: murmur, gallop, rubs - Routine Abdominal Exam Present: soft, normoactive bowel sounds. Absent: tenderness, distended, rebound , guarding, organomegaly, surgical scars - Routine Extremities Exam Present: full ROM, normal capillary refill. Absent: cyanosis, clubbing, edema, tenderness - Routine Skin Exam Present: intact, dry, pallor, warm. Absent: cyanosis, urticaria - Routine Neurological Exam Present: alert, oriented X3, CN II-XII intact, moving all extremities, vision grossly intact, hearing grossly intact, normal speech - Routine Psychiatric Exam Present: normal affect, normal thought process. Absent: visual hallucinations Results - Labs CBC & Chem 7: 01/16/18 03:36 01/16/18 03:36 Labs: Laboratory Results - last 24 hr 01/16/18 01/16/18 03:36 03:36 WBC 23.3 H RBC 4.62 Hgb 14.5 Hct 42.5 MCV 91.9 MCH 31.3 MCHC 34.0 RDW 14.6 Plt Count 319 MPV 8.8 Prelim Diff (Auto) Slide review pending Neut % (Auto) 76.5 H Lymph % (Auto) 13.9 [place] % (Auto) 6.7 Eos % (Auto) 1.9 Baso % (Auto) 1.0 Neut # (Auto) 17.9 H Lymph # (Auto) 3.2 [place] # (Auto) 1.6 H Eos # (Auto) 0.4 Baso # (Auto) 0.2 WBC Differential Manual diff final Seg Neuts % (Manual) 67 Band Neuts % (Manual) 3 Lymphocytes % (Manual) 16 Monocytes % (Manual) 7 Eosinophils % (Manual) 2 Metamyelocytes % (Man) 2 H Myelocytes % (Man) 3 H Abs Neuts (Manual) 17.5 H Differential Comment . Platelet Estimate Normal Platelet Morphology Normal RBC Morphology Normal Sodium 140 Potassium 3.9 Chloride 104 Carbon Dioxide 26.8 Anion Gap 9 BUN 16 Creatinine 0.95 Estimated GFR Greater than 89 Random Glucose 70 L Calcium 8.8 Magnesium 2.3 - Imaging Chest X-Ray 01/09/18 17:24 CONCLUSION: Right upper lobe pneumonia. Assessment and Plan - Plan Right upper lobe pneumonia. Strep pneumo sepsis 2/2 MDRO strain severe leukocytosis, leeyukemoid reaction cont vancomycin CXR in am will consider CT P CXR findings onitor wbc
[2018-01-17] MEDS ORDERED: Pharmacy Ordered Lab Info OTHER ONE (00:45)
[2018-01-17 03:17] LABS: Baso # (Auto) 0.2 th/mm3 (0.0-0.2); Baso % (Auto) 1.2 % (0.0-2.0); Eos # (Auto) 0.4 th/mm3 (0.0-0.4); Eos % (Auto) 2.2 % (0.0-4.0); Hemoglobin 14.4 gm/dL (13.0-17.0); Lymph # (Auto) 2.7 th/mm3 (1.0-4.8); Lymph % (Auto) 14.8 % (9.0-44.0); Mean Corpuscular HGB Conc 34.3 % (32.0-36.0); Mean Corpuscular Hemoglobin 30.9 pg (27.0-34.0); Mean Platelet Volume 8.1 fL (7.0-11.0); Mono # (Auto) 1.3 th/mm3 (0.0-0.9); Mono % (Auto) 6.9 % (0.0-8.0); Neut # (Auto) 13.8 th/mm3 (1.8-7.7); Neut % (Auto) 74.9 % (16.0-70.0); Platelet Count 352 th/mm3 (150-450); Red Blood Count 4.66 mil/mm3 (4.50-5.90); Red Cell Distribution Width 14.5 % (11.6-17.2); White Blood Count 18.4 th/mm3 (4.0-11.0)
[2018-01-17] MEDS: Vancomycin Inj 2,250 MG in Sodium Chlor 0.9% Inj 500 ML IV.SIG SCH ×2 (03:17→12:48)
[2018-01-17] MEDS: Enoxaparin Inj 40 MG/0.4 ML Syringe SQ SCH (03:19)
[2018-01-17 03:30] LABS: Carbon Dioxide 27.3 meq/L (21.0-32.0); Magnesium 2.4 mg/dL (1.5-2.5)
[2018-01-17] MEDS: Acetaminophen 325 MG Tablet PO PRN ×3 (03:34→20:09)
[2018-01-17 04:27] LABS: Platelet Estimate Normal (Normal); Platelet Morphology Normal (Normal)
--- NOTE | 2018-01-17 06:49 | XR ---
EXAM DATE: 01/17/2018 6:42 AM EDT AGE/SEX: 52 years / Male INDICATIONS: Cough, short of breath CLINICAL DATA: This is the patient's subsequent encounter. Patient reports that signs and symptoms h ave been present for 1 week and indicates a pain score of 0/10. MEDICAL/SURGICAL HISTORY: Sepsis. pneumonia None. COMPARISON: [facility], CHEST 1V SINGLE AP, 01/09/2018. . FINDINGS: Previous right upper lobe consolidation has improved. No new infiltrate. Heart size normal. No pneumo thorax. CONCLUSION: Electronically signed by: Spencer Russo MD 01/17/2018 6:47 AM EDT
[2018-01-17] MEDS: hydroCHLOROthiazide 25 MG Tablet PO SCH (10:04)
[2018-01-17] MEDS: amLODIPine 10 MG Tablet PO SCH (10:04)
[2018-01-17] MEDS: hydrALAZINE 25 MG Tablet PO SCH ×2 (10:04→20:06)
[2018-01-17] MEDS: Lisinopril 20 MG Tablet PO SCH ×2 (10:05→20:07)
[2018-01-17] MEDS: Senna/Docusate Sodium 8.6/50 MG Tablet PO SCH ×2 (10:05→20:07)
--- NOTE | 2018-01-17 10:49 | P.PN ---
Subjective Interval history: Follow-up hypertension and pneumonia. States he is doing okay. BP still an issue intermittent elevation Physical Exam Vital signs: Vital Signs 01/16/18 12:00 01/16/18 16:00 01/16/18 20:00 Temperature 98.4 F 98.5 F 98.6 F Pulse Rate 69 70 73 Respiratory Rate 18 18 22 Blood Pressure 174/81 H 150/79 H 207/98 H Pulse Oximetry 97 98 97 01/17/18 00:00 01/17/18 04:00 01/17/18 08:00 Temperature 98.6 F 98.9 F 98.1 F Pulse Rate 69 20 L 67 Respiratory Rate 22 20 19 Blood Pressure 137/66 164/77 H 196/88 H Pulse Oximetry 95 91 L 96 Intake & Output 01/16/18 01/17/18 01/17/18 18:59 06:59 18:59 Intake Total 1730 / 1730 480 / 480 522.5 / 522.5 Balance 1730 / 1730 480 / 480 522.5 / 522.5 Intake: IV 530 / 530 522.5 / 522.5 Vancomycin Inj 2,250 MG In NS 530 / 530 522.5 / 522.5 Inj 500 ML @ 250 mls/hr IV.SIG Q12H [facility] Rx#:[id number] Oral 1200 / 1200 480 / 480 Other: # Voids 8 3 Narrative: GENERAL: Well-developed, obese in no distress SKIN: Warm and dry. CARDIOVASCULAR: Regular rate and rhythm. Soft systolic murmur RESPIRATORY: No accessory muscle use. Clear to auscultation. Breath sounds equal bilaterally. GASTROINTESTINAL: Abdomen soft, non-tender, nondistended. MUSCULOSKELETAL: Extremities without clubbing, cyanosis but with trace bilateral leg edema. No obvious deformities. NEUROLOGICAL: Awake and alert. No obvious cranial nerve deficits. Motor grossly within normal limits. Five out of 5 muscle strength in the arms and legs. Results - Labs CBC & Chem 7: 01/17/18 03:09 01/17/18 03:09 Laboratory Results - last 24 hr 01/17/18 01/17/18 01/17/18 03:09 03:09 03:09 WBC 18.4 H RBC 4.66 Hgb 14.4 Hct 42.0 MCV 90.0 MCH 30.9 MCHC 34.3 RDW 14.5 Plt Count 352 MPV 8.1 Prelim Diff (Auto) Slide review pending Neut % (Auto) 74.9 H Lymph % (Auto) 14.8 [place] % (Auto) 6.9 Eos % (Auto) 2.2 Baso % (Auto) 1.2 Neut # (Auto) 13.8 H Lymph # (Auto) 2.7 [place] # (Auto) 1.3 H Eos # (Auto) 0.4 Baso # (Auto) 0.2 WBC Differential . Diff Scan Auto diff confirmed Differential Comment . Platelet Estimate Normal Platelet Morphology Normal Sodium 139 Potassium 4.0 Chloride 103 Carbon Dioxide 27.3 Anion Gap 9 BUN 22 H Creatinine 1.19 Estimated GFR 77 L Random Glucose 95 Calcium 9.0 Magnesium 2.4 Vancomycin Trough 15.9 H Microbiology 01/12/18 11:41 Blood - Peripheral Aerobic Blood Culture - Preliminary No growth in 4 days 01/12/18 11:41 Blood - Peripheral Anaerobic Blood Culture - Preliminary No growth in 4 days 01/12/18 11:35 Blood - Peripheral Aerobic Blood Culture - Preliminary No growth in 4 days 01/12/18 11:35 Blood - Peripheral Anaerobic Blood Culture - Preliminary No growth in 4 days - Imaging Impressions Chest X-Ray 01/17/18 06:00 CONCLUSION: - Procedures none Assessment and Plan - Plan Bacteremia with Streptococcus pneumoniae -4 out of 4 positive. Resistant to a lot of antibiotics except vancomycin SARA 0.5 and Levaquin SARA of 2. Continue IV vancomycin discontinue Rocephin. Repeat blood cultures negative to date -Leukocytosis slightly improved today. Continue to monitor. Consult infectious disease Pneumonia. As above -Community-acquired -Influenza antigen negative -PRN nebs, pulm toilet, incentive spirometer -Repeat chest x-ray shows improvement of the consolidation status post Zithromax Hypotension -Resolved. Severe hypertension. Improving -Discontinue Cardene drip, continue lisinopril 40 mg twice a day, Norvasc 10 mg daily and hydrochlorothiazide 25 mg daily. Added hydralazine for better control Acute kidney injury -Dehydration -Resolved. -Continue to monitor creatinine. Strict ins and out. DVT GI prophylaxis -SCDs -Lovenox -No GI prophylaxis indicated Discharge Planning: Needs ID clearance.
--- NOTE | 2018-01-17 18:48 | P.PNID ---
Subjective Remarks: co 3 liquid BMs Improved leukocytosis, down to 18 K no CP cont to cough with clear spututm CXR better Antibiotics: vanco Allergies/Adverse Reactions: Allergies No Known Allergies Allergy (Unknown, Uncoded 01/09/18 17:04) none Objective Vital Signs 01/16/18 20:00 01/17/18 00:00 01/17/18 04:00 Temperature 98.6 F 98.6 F 98.9 F Pulse Rate 73 69 20 L Respiratory Rate 22 22 20 Blood Pressure 207/98 H 137/66 164/77 H Pulse Oximetry 97 95 91 L 01/17/18 08:00 01/17/18 12:00 01/17/18 13:54 Temperature 98.1 F 98.7 F Pulse Rate 69 67 71 Respiratory Rate 19 19 Blood Pressure 196/88 H 141/71 H Pulse Oximetry 96 97 01/17/18 16:00 Temperature 98.0 F Pulse Rate 66 Respiratory Rate 19 Blood Pressure 180/84 H Pulse Oximetry 96 Intake & Output 01/16/18 01/17/18 01/17/18 18:59 06:59 18:59 Intake Total 1730 / 1730 480 / 480 1845.0 / 1845.0 Balance 1730 / 1730 480 / 480 1845.0 / 1845.0 Intake: IV 530 / 530 1045.0 / 1045.0 Vancomycin Inj 2,250 MG In NS 530 / 530 1045.0 / 1045.0 Inj 500 ML @ 250 mls/hr IV.SIG Q12H [facility] Rx#:[id number] Oral 1200 / 1200 480 / 480 800 / 800 Other: # Voids 8 3 3 Date of Last Bowel Movement 01/17/18 01/12/18 11:41 Blood - Peripheral Aerobic Blood Culture - Final No growth in 5 days 01/12/18 11:41 Blood - Peripheral Anaerobic Blood Culture - Final No growth in 5 days 01/12/18 11:35 Blood - Peripheral Aerobic Blood Culture - Final No growth in 5 days 01/12/18 11:35 Blood - Peripheral Anaerobic Blood Culture - Final No growth in 5 days Lab - Hematology Results 01/16/18 01/17/18 03:36 03:09 WBC 23.3 H 18.4 H RBC 4.62 4.66 Hgb 14.5 14.4 Hct 42.5 42.0 MCV 91.9 90.0 MCH 31.3 30.9 MCHC 34.0 34.3 RDW 14.6 14.5 Plt Count 319 352 MPV 8.8 8.1 Prelim Diff (Auto) Slide review pending Slide review pending Neut % (Auto) 76.5 H 74.9 H Lymph % (Auto) 13.9 14.8 [place] % (Auto) 6.7 6.9 Eos % (Auto) 1.9 2.2 Baso % (Auto) 1.0 1.2 Neut # (Auto) 17.9 H 13.8 H Lymph # (Auto) 3.2 2.7 [place] # (Auto) 1.6 H 1.3 H Eos # (Auto) 0.4 0.4 Baso # (Auto) 0.2 0.2 WBC Differential Manual diff final . Diff Scan Auto diff confirmed Seg Neuts % (Manual) 67 Band Neuts % (Manual) 3 Lymphocytes % (Manual) 16 Monocytes % (Manual) 7 Eosinophils % (Manual) 2 Metamyelocytes % (Man) 2 H Myelocytes % (Man) 3 H Abs Neuts (Manual) 17.5 H Differential Comment . . Platelet Estimate Normal Normal Platelet Morphology Normal Normal RBC Morphology Normal Lab - Chemistry Results 01/16/18 01/17/18 03:36 03:09 Sodium 140 139 Potassium 3.9 4.0 Chloride 104 103 Carbon Dioxide 26.8 27.3 Anion Gap 9 9 BUN 16 22 H Creatinine 0.95 1.19 Estimated GFR Greater than 89 77 L Random Glucose 70 L 95 Calcium 8.8 9.0 Magnesium 2.3 2.4 Imaging: ITS Impressions Chest X-Ray 01/17/18 06:00 CONCLUSION: Physical Exam: GENERAL: NAD SKIN: Warm and dry. no raash HEAD: Atraumatic. Normocephalic. EYES: Pupils equal and round. No scleral icterus. No injection or drainage. ENT: No nasal bleeding or discharge. Mucous membranes pink and moist. NECK: Trachea midline. No JVD. CARDIOVASCULAR: Regular rate and rhythm. + 2/6 syst murmur jheard on expiration (pt reports having it before) RESPIRATORY: No accessory muscle use. Clear to auscultation. Breath sounds equal bilaterally. GASTROINTESTINAL: Abdomen soft, non-tender, nondistended. Hepatic and splenic margins not palpable. MUSCULOSKELETAL: Extremities without clubbing, cyanosis, or edema. No obvious deformities. NEUROLOGICAL: Awake and alert. No obvious cranial nerve deficits. Motor grossly within normal limits. Five out of 5 muscle strength in the arms and legs. Normal speech. PSYCHIATRIC: Appropriate mood and affect; insight and judgment normal. Assessment and Plan - Plan Right upper lobe pneumonia. Strep pneumo sepsis 2/2 MDRO strain severe leukocytosis, leeyukemoid reaction Systolic murmur Abx asssociated diarrhea cont vancomycin 2D echo r/o C.diff monitor wbc Whne ready to d/c will switch to PO levaquine
[2018-01-17] MEDS: hydrALAZINE 25 MG Tablet PO PRN (20:06)
[2018-01-18] MEDS: Vancomycin Inj 2,250 MG in Sodium Chlor 0.9% Inj 500 ML IV.SIG SCH ×2 (01:22→13:32)
[2018-01-18] MEDS: Enoxaparin Inj 40 MG/0.4 ML Syringe SQ SCH (02:54)
[2018-01-18] MEDS: Acetaminophen 325 MG Tablet PO PRN (02:58)
[2018-01-18 04:58] LABS: Baso # (Auto) 0.1 th/mm3 (0.0-0.2); Baso % (Auto) 0.7 % (0.0-2.0); Eos # (Auto) 0.3 th/mm3 (0.0-0.4); Eos % (Auto) 2.2 % (0.0-4.0); Hematocrit 41.4 % (39.0-51.0); Hemoglobin 13.7 gm/dL (13.0-17.0); Lymph # (Auto) 2.4 th/mm3 (1.0-4.8); Lymph % (Auto) 17.7 % (9.0-44.0); Mean Corpuscular HGB Conc 33.1 % (32.0-36.0); Mean Corpuscular Hemoglobin 30.4 pg (27.0-34.0); Mean Corpuscular Volume 92.1 fL (80.0-100.0); Mean Platelet Volume 8.1 fL (7.0-11.0); Mono # (Auto) 0.8 th/mm3 (0.0-0.9); Mono % (Auto) 5.9 % (0.0-8.0); Neut # (Auto) 10.1 th/mm3 (1.8-7.7); Neut % (Auto) 73.5 % (16.0-70.0); Platelet Count 386 th/mm3 (150-450); Red Blood Count 4.49 mil/mm3 (4.50-5.90); Red Cell Distribution Width 14.2 % (11.6-17.2); White Blood Count 13.8 th/mm3 (4.0-11.0)
[2018-01-18 05:24] LABS: Anion Gap 9 meq/L (5-15); Blood Urea Nitrogen 17 mg/dL (7-18); Calcium 8.8 mg/dL (8.5-10.1); Carbon Dioxide 26.2 meq/L (21.0-32.0); Chloride 105 meq/L (98-107); Glomerular Filtration Rate Greater Than 89 mL/min (>89); Glucose,Random 100 mg/dL (74-106); Magnesium 2.3 mg/dL (1.5-2.5); Potassium 4.2 meq/L (3.5-5.1); Sodium 140 meq/L (136-145)
[2018-01-18] MEDS: hydroCHLOROthiazide 25 MG Tablet PO SCH (09:52)
[2018-01-18] MEDS: hydrALAZINE 25 MG Tablet PO SCH (09:52)
[2018-01-18] MEDS: amLODIPine 10 MG Tablet PO SCH (09:52)
[2018-01-18] MEDS: Lisinopril 20 MG Tablet PO SCH (09:53)
[2018-01-18] MEDS: Senna/Docusate Sodium 8.6/50 MG Tablet PO SCH (09:53)
--- NOTE | 2018-01-18 12:28 | ECHRPT ---
Indication: SEPSIS CONCLUSIONS The left ventricular systolic function is hyperdynamic with an estimated ejection fraction in the ra nge of 65- 70%. Severe concentric left ventricular hypertrophy. Modetrate thickening of the mitral valve leaflets. Trace mitral valve regurgitation. Mild mitral valve regurgitation. Aortic valve sclerosis is present. Moderate thickening of the aortic valve leaflets. BP: / HR: Rhythm: Sinus MEASUREMENTS (Male / Female) Normal Values Technical Quality:Good 2D ECHO LV Diastolic Diameter PLAX 4.5 cm 4.2 - 5.9 / 3.9 - 5.3 cm LV Systolic Diameter PLAX 2.7 cm IVS Diastolic Thickness 1.5 cm 0.6 - 1.0 / 0.6 - 0.9 cm LVPW Diastolic Thickness 1.6 cm 0.6 - 1.0 / 0.6 - 0.9 cm LV Relative Wall Thickness 0.7 LVOT Diameter 2.1 cm M-MODE Aortic Root Diameter MM 2.4 cm LA Systolic Diameter MM 3.7 cm LA Ao Ratio MM 1.5 AV Cusp Separation MM 1.5 cm FINDINGS LEFT VENTRICLE The left ventricular systolic function is hyperdynamic with an estimated ejection fraction in the ra nge of 65- 70%. Normal left ventricular size. Severe concentric left ventricular hypertrophy. No regional wall motion abnormalities are present. RIGHT VENTRICLE Normal right ventricular size and systolic function. LEFT ATRIUM The left atrial size is normal. RIGHT ATRIUM The right atrial size is normal. ATRIAL SEPTUM Normal atrial septal thickness without atrial level shunting by limited color doppler interrogation. AORTA The aortic root and proximal ascending aorta are normal in size on limited imaging. MITRAL VALVE Structurally normal mitral valve. Modetrate thickening of the mitral valve leaflets. Mild mitral va lve regurgitation. No mitral valve stenosis. AORTIC VALVE Trileaflet aortic valve. Aortic valve sclerosis is present. Moderate thickening of the aortic valve leaflets. No aortic valve stenosis or regurgitation. TRICUSPID VALVE Structurally normal tricuspid valve. No tricuspid valve stenosis or regurgitation. PULMONARY VALVE The pulmonary valve is not well visualized. VESSELS The inferior vena cava is normal in size. PERICARDIUM No pericardial effusion. Rodney Mccormack (Electronically Signed) Final Date:18 January 2018 12:28
--- NOTE | 2018-01-18 13:29 | P.PNID ---
Subjective Remarks: BMs loose, but not liquid Improved leukocytosis, down to 12 K no CP cont to cough with clear spututm CXR better Antibiotics: vanco Allergies/Adverse Reactions: Allergies No Known Allergies Allergy (Unknown, Uncoded 01/09/18 17:04) none Objective Vital Signs 01/17/18 13:54 01/17/18 16:00 01/17/18 20:00 Temperature 98.0 F 100.8 F H Pulse Rate 71 66 69 Respiratory Rate 19 22 Blood Pressure 180/84 H 192/67 H Pulse Oximetry 96 98 01/18/18 00:00 01/18/18 04:00 01/18/18 08:00 Temperature 98.3 F 98.8 F 98.3 F Pulse Rate 66 70 60 Respiratory Rate 20 20 18 Blood Pressure 152/73 H 153/71 H 169/87 H Pulse Oximetry 97 93 L 98 01/18/18 12:00 Temperature 98.2 F Pulse Rate 64 Respiratory Rate 18 Blood Pressure 155/77 H Pulse Oximetry 98 Intake & Output 01/17/18 01/18/18 01/18/18 18:59 06:59 18:59 Intake Total 1845.0 / 1845.0 762.5 / 762.5 Balance 1845.0 / 1845.0 762.5 / 762.5 Weight 124.7 kg Intake: IV 1045.0 / 1045.0 522.5 / 522.5 Vancomycin Inj 2,250 MG In NS 1045.0 / 1045.0 522.5 / 522.5 Inj 500 ML @ 250 mls/hr IV.SIG Q12H [facility] Rx#:[id number] Oral 800 / 800 240 / 240 Other: # Voids 3 2 Date of Last Bowel Movement 01/17/18 01/12/18 11:41 Blood - Peripheral Aerobic Blood Culture - Final No growth in 5 days 01/12/18 11:41 Blood - Peripheral Anaerobic Blood Culture - Final No growth in 5 days 01/12/18 11:35 Blood - Peripheral Aerobic Blood Culture - Final No growth in 5 days 01/12/18 11:35 Blood - Peripheral Anaerobic Blood Culture - Final No growth in 5 days Lab - Hematology Results 01/17/18 01/18/18 03:09 03:50 WBC 18.4 H 13.8 H RBC 4.66 4.49 L Hgb 14.4 13.7 Hct 42.0 41.4 MCV 90.0 92.1 MCH 30.9 30.4 MCHC 34.3 33.1 RDW 14.5 14.2 Plt Count 352 386 MPV 8.1 8.1 Prelim Diff (Auto) Slide review pending Neut % (Auto) 74.9 H 73.5 H Lymph % (Auto) 14.8 17.7 [place] % (Auto) 6.9 5.9 Eos % (Auto) 2.2 2.2 Baso % (Auto) 1.2 0.7 Neut # (Auto) 13.8 H 10.1 H Lymph # (Auto) 2.7 2.4 [place] # (Auto) 1.3 H 0.8 Eos # (Auto) 0.4 0.3 Baso # (Auto) 0.2 0.1 WBC Differential . . Diff Scan Auto diff confirmed Differential Comment . Auto diff final Platelet Estimate Normal Platelet Morphology Normal Lab - Chemistry Results 01/17/18 01/18/18 03:09 03:50 Sodium 139 140 Potassium 4.0 4.2 Chloride 103 105 Carbon Dioxide 27.3 26.2 Anion Gap 9 9 BUN 22 H 17 Creatinine 1.19 1.00 Estimated GFR 77 L Greater than 89 Random Glucose 95 100 Calcium 9.0 8.8 Magnesium 2.4 2.3 Imaging: ITS Impressions Chest X-Ray 01/17/18 06:00 CONCLUSION: Physical Exam: GENERAL: NAD SKIN: Warm and dry. no rash EYES: Pupils equal and round. No scleral icterus. No injection or drainage. ENT: No nasal bleeding or discharge. Mucous membranes pink and moist. NECK: Trachea midline. No JVD. CARDIOVASCULAR: Regular rate and rhythm. + 2/6 syst murmur heard on expiration (pt reports having it before) RESPIRATORY: No accessory muscle use. Clear to auscultation. Breath sounds equal bilaterally. GASTROINTESTINAL: Abdomen soft, non-tender, nondistended. Hepatic and splenic margins not palpable. MUSCULOSKELETAL: Extremities without clubbing, cyanosis, or edema. No obvious deformities. NEUROLOGICAL: Awake and alert. Non focal PSYCHIATRIC: Appropriate mood and affect; insight and judgment normal. Assessment and Plan - Plan Right upper lobe pneumonia. Strep pneumo sepsis 2/2 MDRO strain severe leukocytosis, leeyukemoid reaction Systolic murmur - 2 D echo w/o vegetations Abx asssociated diarrhea, C.diff P will be ready today (dw micro lab) If C.diff negative OK to d/c today on Levaquin PO 750 mg daily for 5 more days If C.diff + - reconsult ID
--- NOTE | 2018-01-18 13:47 | P.DS ---
Date of admission: 01/09/18 18:21 Primary care physician: No Primary Care Physician Brief History from admission: 52-year-old male patient with history of hypertension presents with 2 days history of malaise, cough, flulike symptoms, shortness of breath, and body aches. He does not know of any sick contacts. He denies any chest pains, vomiting, abdominal pains, or other symptoms. After patient was admitted to hospitalist services, however his blood pressures dropped to 70/50, and there was a concern that he may be septic. Also the lactate was 3. The hospitalists then requested to admit the patient to [facility] pa[facility] service. DS: Medications - Discharge Medications Prescriptions: amlodipine [Norvasc] 10 mg PO DAILY #30 tab hydralazine 50 mg PO BID #120 tab hydrochlorothiazide 25 mg PO DAILY #30 tab lisinopril 40 mg PO BID #120 tab potassium chloride 20 meq PO DAILY #30 tab DS: Summary Hospital Course: Bacteremia with Streptococcus pneumoniae -4 out of 4 positive. Resistant to a lot of antibiotics except vancomycin SARA 0.5 and Levaquin SARA of 2. Continue IV vancomycin discontinue Rocephin. Repeat blood cultures negative to date -Leukocytosis much improved. Echocardiogram without vegetations. Continue to monitor. Infectious disease has cleared patient for discharge pending C. difficile. Switch to p.o. Levaquin for 5 more days Pneumonia. As above -Community-acquired -Influenza antigen negative -PRN nebs, pulm toilet, incentive spirometer -Repeat chest x-ray shows improvement of the consolidation status post Zithromax Hypotension -Resolved. Severe hypertension. Improving -Discontinue Cardene drip, continue lisinopril 40 mg twice a day, Norvasc 10 mg daily and hydrochlorothiazide 25 mg daily. Added hydralazine for better control Acute kidney injury -Dehydration -Resolved. -Continue to monitor creatinine. Strict ins and out. DVT GI prophylaxis -SCDs -Lovenox -No GI prophylaxis indicated - Time Spent with Patient Total time spent providing and/or coordinating discharge services: Greater than 30 minutes - Quality: VTE Deep Vein Thrombosis/Pulmonary Embolism Present on Admission: No Exam Vital signs: Vital Signs 01/17/18 13:54 01/17/18 16:00 01/17/18 20:00 Temperature 98.0 F 100.8 F H Pulse Rate 71 66 69 Respiratory Rate 19 22 Blood Pressure 180/84 H 192/67 H Pulse Oximetry 96 98 01/18/18 00:00 01/18/18 04:00 01/18/18 08:00 Temperature 98.3 F 98.8 F 98.3 F Pulse Rate 66 70 60 Respiratory Rate 20 20 18 Blood Pressure 152/73 H 153/71 H 169/87 H Pulse Oximetry 97 93 L 98 01/18/18 12:00 Temperature 98.2 F Pulse Rate 64 Respiratory Rate 18 Blood Pressure 155/77 H Pulse Oximetry 98 Intake & Output 01/17/18 01/18/18 01/18/18 18:59 06:59 18:59 Intake Total 1845.0 / 1845.0 762.5 / 762.5 Balance 1845.0 / 1845.0 762.5 / 762.5 Weight 124.7 kg Intake: IV 1045.0 / 1045.0 522.5 / 522.5 Vancomycin Inj 2,250 MG In NS 1045.0 / 1045.0 522.5 / 522.5 Inj 500 ML @ 250 mls/hr IV.SIG Q12H [facility] Rx#:[id number] Oral 800 / 800 240 / 240 Other: # Voids 3 2 Date of Last Bowel Movement 01/17/18 Narrative: GENERAL: Well-developed, obese in no distress SKIN: Warm and dry. CARDIOVASCULAR: Regular rate and rhythm. Soft systolic murmur RESPIRATORY: No accessory muscle use. Clear to auscultation. Breath sounds equal bilaterally. GASTROINTESTINAL: Abdomen soft, non-tender, nondistended. MUSCULOSKELETAL: Extremities without clubbing, cyanosis but with trace bilateral leg edema. No obvious deformities. NEUROLOGICAL: Awake and alert. No obvious cranial nerve deficits. Motor grossly within normal limits. Five out of 5 muscle strength in the arms and legs. Results Procedures completed during hospitalization: none Labs on day of discharge: Labs from last 24 hours 01/18/18 01/18/18 01/18/18 10:00 03:50 03:50 WBC 13.8 H RBC 4.49 L Hgb 13.7 Hct 41.4 MCV 92.1 MCH 30.4 MCHC 33.1 RDW 14.2 Plt Count 386 MPV 8.1 Neut % (Auto) 73.5 H Lymph % (Auto) 17.7 [place] % (Auto) 5.9 Eos % (Auto) 2.2 Baso % (Auto) 0.7 Neut # (Auto) 10.1 H Lymph # (Auto) 2.4 [place] # (Auto) 0.8 Eos # (Auto) 0.3 Baso # (Auto) 0.1 WBC Differential . Differential Comment Auto diff final Sodium 140 Potassium 4.2 Chloride 105 Carbon Dioxide 26.2 Anion Gap 9 BUN 17 Creatinine 1.00 Estimated GFR Greater than 89 Random Glucose 100 Calcium 8.8 Magnesium 2.3 Stl C.difficile Tox PCR Pending St C. diff Tox Epid 027 Pending - Impressions ITS Impressions Chest X-Ray 01/17/18 06:00 CONCLUSION: Discharge Plan - Discharge Condition Condition: Stable - Discharge Order Discharge Orders: Discharge Order (Routine); Ordered 01/18/18 Ordered By: John He - Discharge Details Anticipated Discharge Date: 01/18/18 Discharge Comment: if c diff negative - Physicians Team Primary Care Provider: Primary Care Physici,No Attending Provider: John He Other Providers: Jude Edmonds MD ; Seema Hernandes MD
[2018-01-19] MEDS ORDERED: Pharmacy Ordered Lab Info OTHER ONE (00:45)
== END 2018-01-18 18:31 | disposition home or self-care (01) ==
LOC: PHED 16:55 → PHEDA 18:21 → HIMC 01-10 01:55 → N07 01-15 19:09
PROVIDERS: ADMIT Internal Medicine; ATTEND Internal Medicine